=== PATIENT | female | born 1945 | race Caucasian/White ===

== ENCOUNTER 2016-06-29 10:35 | Outpatient (CLI) | payer MEDICARE, BC | END 2016-06-29 10:36 | disposition home or self-care (01) | DX: I48.91 Unspecified atrial fibrillation (principal) ==

== ENCOUNTER 2016-07-12 10:50 | Outpatient (CLI) | payer MEDICARE, BC | END 2016-07-12 10:51 | disposition home or self-care (01) | DX: I48.91 Unspecified atrial fibrillation (principal) ==

== ENCOUNTER 2016-07-22 10:47 | Outpatient (CLI) | payer MEDICARE, BC | END 2016-07-22 10:48 | disposition home or self-care (01) | DX: I48.91 Unspecified atrial fibrillation (principal) ==

== ENCOUNTER 2016-08-02 10:54 | Outpatient (CLI) | payer MEDICARE, BC | END 2016-08-02 10:55 | disposition home or self-care (01) | DX: I48.91 Unspecified atrial fibrillation (principal) ==

== ENCOUNTER 2016-08-30 11:57 | Outpatient (CLI) | payer MEDICARE, BC | END 2016-08-30 11:58 | disposition home or self-care (01) | DX: I48.91 Unspecified atrial fibrillation (principal) ==

== ENCOUNTER 2016-09-13 11:40 | Outpatient (CLI) | payer MEDICARE, BC | END 2016-09-13 11:41 | disposition home or self-care (01) | DX: I48.91 Unspecified atrial fibrillation (principal) ==

== ENCOUNTER 2016-09-27 11:47 | Outpatient (CLI) | payer MEDICARE, BC | END 2016-09-27 11:48 | disposition home or self-care (01) | DX: I48.91 Unspecified atrial fibrillation (principal) ==

== ENCOUNTER 2016-10-01 12:06 | Outpatient (CLI) | payer MEDICARE, BC | END 2016-10-01 12:07 | disposition home or self-care (01) | DX: I48.91 Unspecified atrial fibrillation (principal) ==

== ENCOUNTER 2016-10-18 13:52 | Outpatient (CLI) | payer MEDICARE, BC | END 2016-10-18 13:53 | disposition home or self-care (01) | DX: I48.91 Unspecified atrial fibrillation (principal) ==

== ENCOUNTER 2016-11-08 10:10 | Outpatient (CLI) | payer MEDICARE, BC ==
[2016-11-08 10:41] LABS: INR 4.3 (0.8-1.2); PT - PROTHROMBIN TIME 48.7 secs (9.9-12.6)
== END 2016-11-08 10:11 | disposition home or self-care (01) ==
LOC: LAB 10:10
PROVIDERS: ATTEND Internal Medicine
DX: I48.91 Unspecified atrial fibrillation (principal)
CPT/HCPCS: 36415; 85610

== ENCOUNTER 2016-11-12 11:07 | Outpatient (CLI) | payer MEDICARE, BC | END 2016-11-12 11:08 | disposition home or self-care (01) | LOC: LAB 11:07 | PROVIDERS: ATTEND Internal Medicine | DX: I48.91 Unspecified atrial fibrillation (principal) | CPT/HCPCS: 36415; 85610 ==

== ENCOUNTER 2016-11-18 11:18 | Outpatient (CLI) | payer MEDICARE, BC | END 2016-11-18 11:19 | disposition home or self-care (01) | DX: I48.91 Unspecified atrial fibrillation (principal) ==

== ENCOUNTER 2016-12-03 11:13 | Outpatient (CLI) | payer MEDICARE, BC | END 2016-12-03 11:14 | disposition home or self-care (01) | LOC: LAB 11:13 | PROVIDERS: ATTEND Internal Medicine | DX: I48.91 Unspecified atrial fibrillation (principal) | CPT/HCPCS: 85610 ==

== ENCOUNTER 2016-12-17 11:03 | Outpatient (CLI) | payer MEDICARE, BC | END 2016-12-17 11:04 | disposition home or self-care (01) | LOC: LAB 11:03 | PROVIDERS: ATTEND Internal Medicine | DX: I48.91 Unspecified atrial fibrillation (principal) | CPT/HCPCS: 85610 ==

== ENCOUNTER 2017-01-07 10:34 | Outpatient (CLI) | payer MEDICARE, BC ==
[2017-01-07 11:05] LABS: HCT - HEMATOCRIT 37.6 % (37.0-47.0); HGB - HEMOGLOBIN 12.5 g/dL (12.0-16.0); MEAN CORPUSCULAR HEMOGLOBIN 30.8 pg (27.0-31.0); MEAN CORPUSCULAR HGB CONC 33.2 g/dL (32.0-36.0); MEAN PLATELET VOLUME 7.5 fL (7.9-10.8); RED BLOOD COUNT 4.05 10^6/uL (4.20-5.40); RED CELL DISTRIBUTION WIDTH 17.3 % (12.0-15.0); WHITE BLOOD COUNT 6.1 x10^3/uL (4.8-10.8)
== END 2017-01-07 10:35 | disposition home or self-care (01) ==
LOC: LAB 10:34
PROVIDERS: ATTEND Internal Medicine
DX: I48.91 Unspecified atrial fibrillation (principal)
CPT/HCPCS: 36415; 85610

== ENCOUNTER 2017-01-26 13:10 | Outpatient (CLI) | payer MEDICARE, BC ==
[2017-01-26 19:23] LABS: BASOPHILS # (AUTO) 0.1 10^3/uL (0.0-0.1); EOSINOPHILS # (AUTO) 0.4 10^3/uL (0.0-0.7); EOSINOPHILS % (AUTO) 5.9 %; HCT - HEMATOCRIT 38.8 % (37.0-47.0); LYMPHOCYTES # (AUTO) 1.4 10^3/uL (1.5-3.5); LYMPHOCYTES % (AUTO) 18.6 %; MEAN CORPUSCULAR HEMOGLOBIN 31.3 pg (27.0-31.0); MEAN CORPUSCULAR HGB CONC 33.5 g/dL (32.0-36.0); MEAN CORPUSCULAR VOLUME 93.5 fL (81.0-99.0); MEAN PLATELET VOLUME 7.5 fL (7.9-10.8); MONOCYTES # (AUTO) 0.6 10^3/uL (0.0-1.0); MONOCYTES % (AUTO) 8.7 %; NEUTROPHILS # (AUTO) 4.8 10^3/uL (1.5-6.6); NEUTROPHILS % (AUTO) 65.8 %; RED BLOOD COUNT 4.15 10^6/uL (4.20-5.40); RED CELL DISTRIBUTION WIDTH 17.1 % (12.0-15.0); UNCORRECTED WHITE BLOOD COUNT 7.3 x10^3/uL; WHITE BLOOD COUNT 7.3 x10^3/uL (4.8-10.8)
[2017-01-26 19:34] LABS: HEMOGLOBIN A1C 0.56 g/dL
[2017-01-26 19:43] LABS: ALBUMIN/GLOBULIN RATIO 0.8 (1.0-2.2); BUN - BLOOD UREA NITROGEN 29 mg/dL (6-20); CALCIUM 9.7 mg/dL (8.5-10.3); CARBON DIOXIDE - CO2 25 mmol/L (21-32); CHLORIDE 101 mmol/L (101-111); CHOL/HDL RATIO 3.4 (<4.4); CHOLESTEROL 122 mg/dL; CREATININE 1.2 mg/dL (0.4-1.0); GFR - MDRD 45 (>89); GLUCOSE 148 mg/dL (70-100); HDL CHOLESTEROL 36 mg/dL; LDL/HDL RATIO 2.1 (<4.4); POTASSIUM 3.4 mmol/L (3.5-5.0); SODIUM 138 mmol/L (135-145); TOTAL PROTEIN 7.9 g/dL (6.7-8.2); TRIGLYCERIDES 62 mg/dL; VLDL CHOLESTEROL 12 mg/dL
== END 2017-01-26 13:11 ==
LOC: LAB.WCP 13:10
PROVIDERS: ATTEND Family Medicine
DX: E11.9 Type 2 diabetes mellitus without complications (principal)
CPT/HCPCS: 36415; 80053; 80061; 82043; 83036; 85025

== ENCOUNTER 2017-02-04 11:54 | Outpatient (CLI) | payer MEDICARE, BC | END 2017-02-04 11:55 | disposition home or self-care (01) | LOC: LAB 11:54 | PROVIDERS: ATTEND Internal Medicine | DX: I48.91 Unspecified atrial fibrillation (principal) | CPT/HCPCS: 85610 ==

== ENCOUNTER 2017-02-08 17:40 | Outpatient (CLI) | payer MEDICARE, BC ==
--- NOTE | 2017-02-09 09:18 | XRAY Report ---
TWO VIEW ABDOMEN: 02/08/2017 CLINICAL INDICATION: Constipation. FINDINGS: Supine and upright views of the abdomen demonstrate a normal bowel gas pattern. A gastric band is noted in place. No free intraperitoneal gas is present. There is a 10 mm radiodensity overlyi ng the left renal shadow, suspicious for nephrolithiasis. IMPRESSION: NO EVIDENCE OF BOWEL OBSTRUCTION OR PERFORATION. GASTRIC BAND. LIKELY LEFT NEPHROLITHIAS IS. JOB #: [id number] EXT JOB #:[id number]
== END 2017-02-08 17:41 | disposition home or self-care (01) ==
LOC: DI 17:40
PROVIDERS: ATTEND Family Medicine
DX: K59.00 Constipation, unspecified (principal)
CPT/HCPCS: 74020

== ENCOUNTER 2017-02-18 11:28 | Outpatient (CLI) | payer MEDICARE, BC | END 2017-02-18 11:29 | disposition home or self-care (01) | LOC: LAB 11:28 | PROVIDERS: ATTEND Internal Medicine | DX: I48.91 Unspecified atrial fibrillation (principal) | CPT/HCPCS: 85610 ==

== ENCOUNTER 2017-03-08 01:31 | Outpatient (CLI) | payer MEDICARE, BC | END 2017-03-08 01:32 | disposition critical access hospital (66) | LOC: EMS 01:31 | PROVIDERS: ATTEND Surgery | DX: M54.9 Dorsalgia, unspecified (principal); R25.2 Cramp and spasm | CPT/HCPCS: A0425; A0427 ==

== ENCOUNTER 2017-03-08 01:46 | Emergency (ER) | payer MEDICARE, BC ==
[2017-03-08] MEDS ORDERED: SODIUM CHLORIDE 0.9% 1,000 ML IV ONE (01:57)
[2017-03-08] MEDS ORDERED: DEXAMETHASONE 10 MG/ML VIAL IVP STA (02:14)
[2017-03-08] MEDS ORDERED: DEXAMETHASONE 10 MG/ML VIAL ONE (02:23)
[2017-03-08 02:37] LABS: BASOPHILS # (AUTO) 0.1 10^3/uL (0.0-0.1); BASOPHILS % (AUTO) 1.1 %; EOSINOPHILS # (AUTO) 0.3 10^3/uL (0.0-0.7); EOSINOPHILS % (AUTO) 5.2 %; HCT - HEMATOCRIT 37.3 % (37.0-47.0); HGB - HEMOGLOBIN 12.4 g/dL (12.0-16.0); LYMPHOCYTES # (AUTO) 1.2 10^3/uL (1.5-3.5); LYMPHOCYTES % (AUTO) 17.5 %; MEAN CORPUSCULAR HEMOGLOBIN 30.3 pg (27.0-31.0); MEAN CORPUSCULAR HGB CONC 33.1 g/dL (32.0-36.0); MEAN CORPUSCULAR VOLUME 91.4 fL (81.0-99.0); MONOCYTES # (AUTO) 0.7 10^3/uL (0.0-1.0); MONOCYTES % (AUTO) 11.2 %; NEUTROPHILS # (AUTO) 4.3 10^3/uL (1.5-6.6); NUCLEATED RED BLOOD CELLS AUTO 0.1 /100WBC; RED BLOOD COUNT 4.08 10^6/uL (4.20-5.40); RED CELL DISTRIBUTION WIDTH 16.8 % (12.0-15.0); UNCORRECTED WHITE BLOOD COUNT 6.7 x10^3/uL; WHITE BLOOD COUNT 6.7 x10^3/uL (4.8-10.8)
[2017-03-08 02:38] LABS: INR 2.5 (0.8-1.2)
[2017-03-08 02:45] LABS: ALBUMIN/GLOBULIN RATIO 0.7 (1.0-2.2); BILIRUBIN,TOTAL 4.9 mg/dL (0.2-1.0); CREATININE 1.2 mg/dL (0.4-1.0); POTASSIUM 3.3 mmol/L (3.5-5.0); TOTAL PROTEIN 8.2 g/dL (6.7-8.2)
[2017-03-08] MEDS ORDERED: POTASSIUM BICARB 25 MEQ TABLET PO STA (02:46)
[2017-03-08] MEDS ORDERED: POTASSIUM BICARB 25 MEQ TABLET PO ONE (03:01)
--- NOTE | 2017-03-08 03:22 | ED Physician Documentation ---
PD HPI BACK PAIN - Stated complaint Stated Complaint: BACK PX - Chief complaint Chief Complaint: Back Pain - History obtained from History obtained from: Patient, Family, EMS - History of Present Illness Timing - onset: How many days ago (3) Timing - duration: Days (3) Timing - details: Gradual onset, Still present Location: Lower Quality: Pain, Spasm, Sharp Associated symptoms: No: Fever, Weakness, Numbness, Incontinent of urine, Unable to urinate, Hematuria, Incontinent of stool Improves with: Rest Worsened by: Movement, Palpation Contributing factors: Other (The patient is on lasix and has pulmonary hypertension) Similar symptoms before: Diagnosis (lumbar spasm.) Recently seen: Clinic (The patient has increased her dose of lasix.) - Additional information Additional information: 71-year-old female with a history of pulmonary hypertension atrial fibrillation has chronic peripheral edema and has recently increased her dose of Lasix and has been diuresing. Over the past 3 days she has developed acute low back spasm and this evening she was unable to tolerate it any longer. She was able unable to get up to make it to the bathroom. She called 911 and she has had quite a relief of her pain with use of 50 mcg of fentanyl given in route to the hospital. Review of Systems Constitutional: denies: Fever Ears: denies: Ear pain Nose: denies: Congestion Throat: denies: Sore throat Cardiac: denies: Chest pain / pressure, Palpitations Respiratory: reports: Dyspnea. denies: Cough GI: denies: Abdominal Pain, Nausea, Vomiting : denies: Dysuria, Frequency Skin: denies: Rash Musculoskeletal: reports: Back pain, Extremity swelling. denies: Neck pain Neurologic: denies: Generalized weakness, Focal weakness, Numbness PD PAST MEDICAL HISTORY - Past Medical History Cardiovascular: Hypertension, High cholesterol, Atrial fibrillation, Murmur, Other Respiratory: Other Endocrine/Autoimmune: Type 2 diabetes - Past Surgical History Past Surgical History: Yes HEENT: Cataracts - Present Medications Home Medications: Ambulatory Orders Medication Instructions Recorded Confirmed Albuterol Sulfate [Albuterol 8.5 gm 03/13/15 03/13/15 Sulfate Hfa] Cephalexin Suspension [Keflex] 500 mg PO QID #300 ml 03/13/15 Furosemide [Lasix] 80 mg 03/13/15 03/13/15 Insulin Glargine,Hum.rec.anlog 40 units 03/13/15 03/13/15 [Lantus] Irbesartan [Avapro] 75 mg 03/13/15 03/13/15 Metoprolol Tartrate [Lopressor] 25 mg 03/13/15 03/13/15 Simvastatin 20 mg 03/13/15 03/13/15 Warfarin Sodium [Coumadin] 2 mg 03/13/15 03/13/15 Nitrofurantoin [Macrobid] 100 mg PO BID #10 capsule 03/08/17 traMADol [Ultram] 50 mg PO Q6H PRN #20 tablet 03/08/17 - Allergies Allergies/Adverse Reactions: Allergies Allergy/AdvReac Type Severity Reaction Status Date / Time amlodipine besylate * AdvReac Unknown Verified 03/08/17 01:57 [From [facility]] codeine AdvReac Hallucinati Verified 03/08/17 01:57 ons - Social History Does the pt smoke?: No Smoking Status: Never smoker Does the pt drink ETOH?: No Does the pt have substance abuse?: No - Immunizations Immunizations are current?: Yes PD ED PE NORMAL - Vitals Vital signs reviewed: Yes (tachy ) - General General: No acute distress, Well developed/nourished - HEENT HEENT: Atraumatic, PERRL - Neck Neck: Supple, no meningeal sign - Cardiac Cardiac: RRR, Other (harsh 2/6 holosystolic murmer at LSB) - Respiratory Respiratory: No respiratory distress, Clear bilaterally - Abdomen Abdomen: Soft, Non tender, Other (There are redundant folds in the abdomen ) - Back Back: Other (There is point tenderness to the lower lumbar paraspinous muscles ) - Derm Derm: Normal color, Warm and dry, No rash - Extremities Extremities: No deformity, Other (There is marked edema to the LE bilaterally. The left ankle is in a compression dressing with a wound vac in place. The edema is past the thighs. There is woody induration to the anterior calves. with post inflamitory hyperpigmentation. ) - Neuro Neuro: No motor deficit, No sensory deficit, Normal speech - Psych Psych: Normal mood, Normal affect Results - Vitals Vitals: Vital Signs - 24 hr 03/08/17 01:55 Temperature 36.2 C L Heart Rate 102 H Respiratory 16 Rate Blood Pressure 120/61 O2 Saturation 96 Oxygen O2 Source Room air - Labs Labs: Laboratory Tests 03/08/17 03/08/17 03/08/17 02:28 02:28 02:28 WBC 6.7 RBC 4.08 L Hgb 12.4 Hct 37.3 MCV 91.4 MCH 30.3 MCHC 33.1 RDW 16.8 H Plt Count 174 MPV 7.0 L Neut # 4.3 Lymph # 1.2 L [place] # 0.7 Eos # 0.3 Baso # 0.1 Absolute Nucleated RBC 0.01 Nucleated RBCs 0.1 PT 29.0 H INR 2.5 H Sodium 136 Potassium 3.3 L Chloride 100 L Carbon Dioxide 25 Anion Gap 11.0 BUN 33 H Creatinine 1.2 H Estimated GFR (MDRD) 45 L Glucose 155 H Calcium 9.0 Total Bilirubin 4.9 H AST 30 ALT 13 Alkaline Phosphatase 111 Total Protein 8.2 Albumin 3.5 Globulin 4.7 H Albumin/Globulin Ratio 0.7 L Lipase 21 L Urine Color Urine Clarity Urine pH Ur Specific [place] Urine Protein Urine Glucose (UA) Urine Ketones Urine Occult Blood Urine Nitrite Urine Bilirubin Urine Urobilinogen Ur Leukocyte Esterase Urine RBC Urine WBC Ur Squamous Epith Cells Urine Bacteria Urine Mucus Ur Microscopic Review Urine Culture Comments 03/08/17 04:23 WBC RBC Hgb Hct MCV MCH MCHC RDW Plt Count MPV Neut # Lymph # [place] # Eos # Baso # Absolute Nucleated RBC Nucleated RBCs PT INR Sodium Potassium Chloride Carbon Dioxide Anion Gap BUN Creatinine Estimated GFR (MDRD) Glucose Calcium Total Bilirubin AST ALT Alkaline Phosphatase Total Protein Albumin Globulin Albumin/Globulin Ratio Lipase Urine Color DK. ORANGE Urine Clarity SL. CLOUDY Urine pH 5.5 Ur Specific [place] 1.025 Urine Protein 30 H Urine Glucose (UA) NEGATIVE Urine Ketones NEGATIVE Urine Occult Blood LARGE H Urine Nitrite NEGATIVE Urine Bilirubin NEGATIVE Urine Urobilinogen 1 (NORMAL) Ur Leukocyte Esterase TRACE H Urine RBC TNTC H Urine WBC 6-10 H Ur Squamous Epith Cells RARE Squamous Urine Bacteria Few Urine Mucus Few Strands Ur Microscopic Review INDICATED Urine Culture Comments INDICATED Procedures - IVC sono (time) 0210 Bedside IVC sono: IVC measures (cm) (2.86), Other (pulmonary hypertension.) PD MEDICAL DECISION MAKING - ED course Complexity details: reviewed results, re-evaluated patient, considered differential, d/w patient, d/w family ED course: 71-year-old female with a history of atrial fibrillation and pulmonary hypertension who is on Coumadin has developed some acute low back spasm. She does appear dehydrated on evaluation of her blood work she does have a generous inferior vena cava consistent with the reported pulmonary hypertension. She has this fluid channel all the way down to her feet. Despite this she is given intravenous saline dexamethasone and tramadol with improvement in her pain.She is also found to have mildly low potassium and is given 25 mEq of potassium bicarbonate. Departure - Departure Disposition: 01 Home, Self Care Clinical Impression: Back spasm, Dehydration, Hypokalemia Urinary tract infection Qualifiers: Urinary tract infection type: acute cystitis Hematuria presence: with hematuria Qualified Code(s): N30.01 - Acute cystitis with hematuria Condition: Stable Instructions: ED Spasm Back No Trauma, ED Dehydration, ED Potassium Deficiency , ED UTI Cystitis Female Follow-Up: Wendy Shah DO [Primary Care Provider] - Prescriptions: Nitrofurantoin [Macrobid] 100 mg PO BID #10 capsule traMADol [Ultram] 50 mg PO Q6H PRN #20 tablet PRN Reason: Pain
[2017-03-08] MEDS ORDERED: traMADol 50 MG TABLET PO STA (03:32)
[2017-03-08] MEDS ORDERED: traMADol 50 MG TABLET PO ONE (03:43)
[2017-03-08 04:44] LABS: PH,URINE 5.5 PH (5.0-7.5)
[2017-03-08 04:48] LABS: BILIRUBIN,URINE NEGATIVE (NEGATIVE); UA w/ MICROSCOPIC CHARGE YES
[2017-03-08 04:52] LABS: UR CULTURE IF IND INDICATED
[2017-03-08] MEDS ORDERED: cefTRIAXone 1 GM in SODIUM CHLORIDE 0.9% MINIBAG 100 ML IV STA (05:11)
[2017-03-08] MEDS ORDERED: cefTRIAXone 1 GM VIAL ONE (05:24)
[2017-03-08 05:49] VITALS: BP 133/75
== END 2017-03-08 06:00 | disposition home or self-care (01) ==
LOC: EDUNIT# → ED 01:46 → SUPCPDRO 01:46 → ED 06:00
DX: M62.830 Muscle spasm of back (principal); E86.0 Dehydration; E87.6 Hypokalemia; N30.01 Acute cystitis with hematuria; I48.91 Unspecified atrial fibrillation; E11.9 Type 2 diabetes mellitus without complications; I27.2 Other secondary pulmonary hypertension; R60.0 Localized edema; Z79.01 Long term (current) use of anticoagulants; Z79.4 Long term (current) use of insulin
CPT/HCPCS: 36415; 80053; 81001; 83690; 85025; 85610; 87086; 96365; 96375; 99284; A9270; 81003

== ENCOUNTER 2017-03-11 11:31 | Outpatient (CLI) | payer MEDICARE, BC | END 2017-03-11 11:32 | disposition home or self-care (01) | LOC: LAB 11:31 | PROVIDERS: ATTEND Internal Medicine | DX: E63.8 Other specified nutritional deficiencies (principal); I48.91 Unspecified atrial fibrillation | CPT/HCPCS: 36415; 84134; 85610 ==

== ENCOUNTER 2017-04-10 09:45 | Outpatient (CLI) | payer MEDICARE, BC | END 2017-04-10 09:46 | disposition critical access hospital (66) | LOC: EMS 09:45 | PROVIDERS: ATTEND Surgery | DX: R53.1 Weakness (principal) | CPT/HCPCS: A0425; A0429 ==

== ENCOUNTER 2017-04-10 09:59 | Inpatient (IN) | payer MEDICARE, BC ==
--- NOTE | 2017-04-10 10:40 | ED Physician Documentation ---
PD HPI DYSPNEA - Stated complaint Stated Complaint: WEAKNESS - Chief complaint Chief Complaint: Neuro - History obtained from History obtained from: Patient, Family - History of Present Illness Timing - onset: How many months ago (2) Timing - onset during: Light activity Timing - details: Gradual onset Inciting event(s): No: Out of meds, URI Improved by: Rest Worsened by: Exertion, Laying flat Associated symptoms: Bilateral edema. No: Fever, Cough, Wheezing, Chest pain / discomfort, Palpitations Similar symptoms before: Has not had sx before Recently seen: Not recently seen Review of Systems Constitutional: reports: Myalgias, Fatigue. denies: Fever, Chills Nose: denies: Rhinorrhea / runny nose, Congestion Throat: denies: Sore throat Cardiac: reports: Pedal edema. denies: Chest pain / pressure, Palpitations, Calf pain (but pain left lower leg at sores, and has been to [facility] for it.) Respiratory: reports: Dyspnea. denies: Cough, Wheezing GI: denies: Abdominal Pain, Nausea, Vomiting, Diarrhea : denies: Dysuria, Frequency Skin: reports: Lesions (sore left foot/ankle with some clear drainage.) Musculoskeletal: denies: Neck pain, Back pain Neurologic: reports: Generalized weakness. denies: Focal weakness, Numbness, Altered mental status, Headache, Head injury PD PAST MEDICAL HISTORY - Past Medical History Past Medical History: Yes Cardiovascular: Hypertension, High cholesterol, Atrial fibrillation, Murmur, Other Respiratory: Other Endocrine/Autoimmune: Type 2 diabetes Musculoskeletal: Other Other Past Medical History: osteomylitis, lymphedema - Past Surgical History Past Surgical History: Yes HEENT: Cataracts - Present Medications Home Medications: Ambulatory Orders Medication Instructions Recorded Confirmed Albuterol Sulfate [Albuterol 8.5 gm PO PRN PRN 03/13/15 04/10/17 Sulfate Hfa] Furosemide [Lasix] 80 mg PO DAILY 03/13/15 04/10/17 Insulin Glargine,Hum.rec.anlog 40 units SQ DAILY 03/13/15 04/10/17 [Lantus] Warfarin Sodium [Coumadin] 2 mg PO DAILY 03/13/15 04/10/17 traMADol [Ultram] 50 mg PO Q6H PRN #20 tablet 03/08/17 04/10/17 Potassium Chloride 15 ml PO DAILY 04/10/17 04/10/17 - Allergies Allergies/Adverse Reactions: Allergies Allergy/AdvReac Type Severity Reaction Status Date / Time amlodipine besylate * AdvReac Unknown Verified 03/08/17 01:57 [From [facility]] codeine AdvReac Hallucinati Verified 03/08/17 01:57 ons - Social History Does the pt smoke?: No Smoking Status: Never smoker Does the pt drink ETOH?: No Does the pt have substance abuse?: No - Immunizations Immunizations are current?: Yes PD ED PE NORMAL - Vitals Vital signs reviewed: Yes - General General: Alert and oriented X 3, Well developed/nourished - HEENT HEENT: Atraumatic, Ears normal, Pharynx benign - Neck Neck: Supple, no meningeal sign, No adenopathy, No bruit, Other (JVD at 45 degrees) - Cardiac Cardiac: RRR, No murmur, No rub, Other (2/6 murmur left chest) - Respiratory Respiratory: Other (faint crackles at bases, otherwise clear. ) - Abdomen Abdomen: Soft, Non tender - Female Female : Deferred - Rectal Rectal: Deferred - Back Back: No CVA TTP - Derm Derm: Normal color, Warm and dry - Extremities Extremities: No tenderness to palpate, Other (marked 3+ edema in both legs. ) - Neuro Neuro: Alert and oriented X 3, foot setter 2-12 intact, No motor deficit, Normal speech - Psych Psych: Normal mood Results - Vitals Vitals: Vital Signs - 24 hr 04/10/17 04/10/17 04/10/17 10:00 11:07 11:56 Temperature 36.2 C L 36.5 C Heart Rate 95 64 102 H Respiratory 20 18 16 Rate Blood Pressure 120/86 H 115/70 130/64 O2 Saturation 96 95 97 04/10/17 12:46 Temperature Heart Rate 99 Respiratory 16 Rate Blood Pressure 109/86 H O2 Saturation 97 Oxygen O2 Source Room air - Labs Labs: Laboratory Tests 04/10/17 04/10/17 04/10/17 11:19 11:19 11:19 WBC 7.3 RBC 4.17 L Hgb 12.6 Hct 37.7 MCV 90.3 MCH 30.1 MCHC 33.4 RDW 18.9 H Plt Count 203 MPV 7.3 L Neut # 5.0 Lymph # 1.1 L [place] # 1.0 Eos # 0.2 Baso # 0.0 Absolute Nucleated RBC 0.00 Nucleated RBC % 0.1 PT 35.2 H INR 3.1 H Sodium 130 L Potassium 3.9 Chloride 96 L Carbon Dioxide 21 Anion Gap 13.0 BUN 37 H Creatinine 1.4 H Estimated GFR (MDRD) 37 L Glucose 145 H Calcium 9.1 Magnesium 2.2 Total Bilirubin 7.4 H AST 38 ALT 14 Alkaline Phosphatase 98 Troponin I B-Natriuretic Peptide Total Protein 7.8 Albumin 3.2 Globulin 4.6 H Albumin/Globulin Ratio 0.7 L Lipase 16 L 04/10/17 04/10/17 11:19 11:19 WBC RBC Hgb Hct MCV MCH MCHC RDW Plt Count MPV Neut # Lymph # [place] # Eos # Baso # Absolute Nucleated RBC Nucleated RBC % PT INR Sodium Potassium Chloride Carbon Dioxide Anion Gap BUN Creatinine Estimated GFR (MDRD) Glucose Calcium Magnesium Total Bilirubin AST ALT Alkaline Phosphatase Troponin I 0.04 B-Natriuretic Peptide 315 H Total Protein Albumin Globulin Albumin/Globulin Ratio Lipase - Rads (name of study) chest Radiology: Prelim report reviewed, EMP read contemporaneously (mild pulmonary edema) PD MEDICAL DECISION MAKING - ED course Complexity details: reviewed old records, reviewed results, considered differential (marked edema in both legs, with sores on left. Some redness of skin but appears more chronic stasis. Has fairly clear lung sounds, so not as apparent CHF. Consider flow impairment at level liver/abd, larry in lieu of elevated liver enzymes with normal enough abd U/S couple weeks ago. General weakness from edema and weight. ), d/w patient Departure - Departure Disposition: ED Place in Observation Clinical Impression: Generalized edema, Elevated bilirubin, Generalized weakness, Sore on leg Dyspnea Qualifiers: Dyspnea type: shortness of breath Qualified Code(s): R06.02 - Shortness of breath Obesity Qualifiers: Obesity type: unspecified obesity type Obesity classification: unspecified obesity classification Serious obesity comorbidity presence: without serious comorbidity Qualified Code(s): E66.9 - Obesity, unspecified Condition: Stable Record reviewed to determine appropriate education?: Yes
[2017-04-10] MEDS ORDERED: FUROSEMIDE 40 MG/4 ML VIAL IVP STA ×2 (11:10→11:11)
[2017-04-10] MEDS ORDERED: FUROSEMIDE 40 MG/4 ML VIAL ONE ×2 (11:23→11:50)
[2017-04-10 11:27] LABS: BASOPHILS % (AUTO) 0.4 %; EOSINOPHILS # (AUTO) 0.2 10^3/uL (0.0-0.7); EOSINOPHILS % (AUTO) 2.5 %; HCT - HEMATOCRIT 37.7 % (37.0-47.0); HGB - HEMOGLOBIN 12.6 g/dL (12.0-16.0); LYMPHOCYTES # (AUTO) 1.1 10^3/uL (1.5-3.5); LYMPHOCYTES % (AUTO) 14.7 %; MEAN CORPUSCULAR HEMOGLOBIN 30.1 pg (27.0-31.0); MEAN CORPUSCULAR HGB CONC 33.4 g/dL (32.0-36.0); MEAN CORPUSCULAR VOLUME 90.3 fL (81.0-99.0); MEAN PLATELET VOLUME 7.3 fL (7.9-10.8); MONOCYTES % (AUTO) 13.2 %; NEUTROPHILS % (AUTO) 69.2 %; NUCLEATED RED BLOOD CELLS AUTO 0.1 /100WBC; RED BLOOD COUNT 4.17 10^6/uL (4.20-5.40); RED CELL DISTRIBUTION WIDTH 18.9 % (12.0-15.0); UNCORRECTED WHITE BLOOD COUNT 7.3 x10^3/uL; WHITE BLOOD COUNT 7.3 x10^3/uL (4.8-10.8)
[2017-04-10 11:33] LABS: INR 3.1 (0.8-1.2); PT - PROTHROMBIN TIME 35.2 secs (9.9-12.6)
[2017-04-10 11:42] LABS: ALBUMIN/GLOBULIN RATIO 0.7 (1.0-2.2); BILIRUBIN,TOTAL 7.4 mg/dL (0.2-1.0); CALCIUM 9.1 mg/dL (8.5-10.3); CREATININE 1.4 mg/dL (0.4-1.0); MAGNESIUM 2.2 mg/dL (1.7-2.8); POTASSIUM 3.9 mmol/L (3.5-5.0); TOTAL PROTEIN 7.8 g/dL (6.7-8.2)
--- NOTE | 2017-04-10 12:02 | XRAY Preliminary Report ---
Exam: XR CHEST 1 VIEW IMPRESSION: 1. Mild pulmonary edema. [facility] SITE ID: [id number]
--- NOTE | 2017-04-10 12:05 | XRAY Report ---
EXAM: CHEST RADIOGRAPHY EXAM DATE: 04/10/2017 11:42 AM. CLINICAL HISTORY: Dyspnea and weight gain. COMPARISON: None. TECHNIQUE: 1 view. FINDINGS: Lungs/Pleura: Mild bilateral pulmonary edema. Mild pulmonary vascular redistribution. Mediastinum: Heart size upper normal limits. Other: None. IMPRESSION: 1. Mild pulmonary edema. [facility] Referring Provider Line: [phone] SITE ID: [id number]
[2017-04-10] MEDS ORDERED: metOLazone 2.5 MG TABLET PO STA (12:35)
[2017-04-10] MEDS ORDERED: BUMETANIDE 1 MG/4 ML VIAL IVP STA (12:35)
[2017-04-10] MEDS ORDERED: ONDANSETRON 4 MG/2 ML VIAL IVP PRN (12:44)
[2017-04-10] MEDS ORDERED: SODIUM CHLORIDE FLUSH 0.9% 10 ML SYRINGE IVP PRN (12:44)
[2017-04-10] MEDS ORDERED: ONDANSETRON ODT 4 MG TABLET TL PRN (12:44)
[2017-04-10] MEDS ORDERED: ACETAMINOPHEN 325 MG TABLET PO PRN (12:44)
[2017-04-10] MEDS ORDERED: ENOXAPARIN 40 MG/0.4 ML SYRINGE SUBQ SCH (13:00)
--- NOTE | 2017-04-10 13:57 | CT Preliminary Report ---
Exam: CT ABDOMEN/PELVIS W/O IMPRESSION: 1. Mild intra-abdominal ascites. 2. Gastric banding procedure. 3. Potential pulmonary infection and/or pulmonary nodules which remain indeterminate. Consider dedica helena chest CT for further evaluation. 4. Cholelithiasis. 5. Bilateral nonobstructive nephrolithiasis. RADI SITE ID: [id number]
--- NOTE | 2017-04-10 13:59 | CT Report ---
EXAM: CT ABDOMEN AND PELVIS (CT KUB) EXAM DATE: 04/10/2017 01:18 PM. CLINICAL HISTORY: Elevated liver enzymes. COMPARISONS: None. TECHNIQUE: Routine axial helical CT imaging was performed through the abdomen and pelvis without IV c ontrast. Reconstructions: Coronal and sagittal. In accordance with CT protocol optimization, one or more of the following dose reduction techniques w ere utilized for this exam: automated exposure control, adjustment of mA and/or KV based on patient s ize, or use of iterative reconstructive technique. FINDINGS: Evaluation is limited by patient body habitus and the lack of any contrast. Lung Bases: Patchy airspace opacification is in the right middle lobe. There is atelectasis in the ri ght lower lobe. A questionable 3 mm pulmonary nodule is in the left lower lobe on series 3, image 1. There are 2 pulmonary nodules in the left lower lobe on series 3, image 9 with the largest measuring 7 mm. A trace right pleural effusion is seen. Right Kidney/Ureter: 3 nonobstructive stones are in the right kidney. The largest measures 6 mm. No h ydronephrosis. Multiple nonobstructive stones are in the left kidney. The largest measures 1.1 cm. No hydronephrosis. Left Kidney/Ureter: No stones, hydronephrosis, or hydroureter. No perinephric fat stranding. Other Solid Organs: The pancreas is atrophied. The liver is somewhat small in size. The spleen is unr emarkable. Gallbladder/Bile Ducts: Multiple gallstones are present. Peritoneal Cavity: The patient has had a gastric banding procedure. Mild ascites is present. Pelvic Organs: No bladder stones or wall thickening. Noncontrast images of the visualized pelvic orga ns are unremarkable. Vasculature: The infrahepatic inferior vena cava is enlarged. Other: Mitral annulus calcifications are present. Diffuse anasarca is present. There is DISH of the t horacic spine. IMPRESSION: 1. Mild intra-abdominal ascites. 2. Gastric banding procedure. 3. Potential pulmonary infection and/or pulmonary nodules which remain indeterminate. Consider dedica helena chest CT for further evaluation. 4. Cholelithiasis. 5. Bilateral nonobstructive nephrolithiasis. [facility] Referring Provider Line: [phone] SITE ID: [id number]
[2017-04-10] MEDS: SODIUM CHLORIDE FLUSH 0.9% 10 ML SYRINGE IVP SCH ×2 (15:45→21:30)
[2017-04-10] MEDS: SPIRONOLACTONE 25 MG TABLET PO SCH (16:57)
[2017-04-10 17:45] LABS: MAGNESIUM 2.4 mg/dL (1.7-2.8); PHOSPHORUS 3.4 mg/dL (2.5-4.6)
[2017-04-10 19:18] LABS: HEMOGLOBIN A1C 0.54 g/dL
[2017-04-10] MEDS: INSULIN ASPART 300 UNIT/3 ML PEN SUBQ SCH (21:29)
[2017-04-10] MEDS: INSULIN GLARGINE 300 UNIT/3 ML PEN SUBQ SCH (21:29)
[2017-04-10] MEDS: traZODone 50 MG TABLET PO PRN (21:30)
[2017-04-10] MEDS: HYDROcod/ACETAM 5/325 MG TABLET PO PRN (23:47)
--- NOTE | 2017-04-11 01:21 | HISTORY & PHYSICAL EXAMINATION ---
DATE OF ADMISSION: 04/10/2017 CHIEF COMPLAINT: Worsening bilateral lower extremity edema and weakness and shortness of breath. HISTORY OF PRESENT ILLNESS: The patient is a morbidly obese 71-year-old female with a medical history that includes laparoscopic banding for weight loss, hypertension, hypercholesterolemia, atrial fibrillation, heart murmur, type 2 diabetes, osteomyelitis and lymphedema. The patient states she was in her usual state of health when approximately a couple days ago she started having gradual onset of shortness of breath and worsening bilateral lower extremity edema. The patient states the original symptoms started many months ago and had been gradually worsening over the last several weeks. She states that she gets short of breath and weak with just light activity. She states it has been improved with resting and she has a difficult time lying flat, states that shortness of breath worsens. The bilateral lower extremity edema has been worsening for several weeks. She has never had these types of symptoms before. She was recently seen by her doctor Wendy Shah for similar symptoms and was worked up in the office and was noted to have an elevated bilirubin. The patient has been on Coumadin for approximately 2 years for her onset of atrial fibrillation. The patient states that she has been gaining weight over the last 8 months for a total of 70 pounds and in the last 2-3 months for weight gain has been the worst. At her highest weight she weighed 500 pounds. She is now 387 after lap band procedure approximately 10 years ago. The patient is a diabetic and on insulin. She states that she takes Lantus anywhere between 10 and 35 units depending on her blood sugars. She states that her blood sugars have been within normal limits. She admits to having atrial fibrillation. Her last INR that was checked was between 2 and 3. She is not taking blood pressure medications nor is she taking any medication for thyroid. She states she had an echocardiogram approximately 1 year ago for worsening atrial fibrillation. The patient also had a recent amputation on her left foot with a small middle toe for a osteomyelitis. 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 The patient was seen approximately a month ago in her primary care provider's office for back spasms. She was given tramadol by her primary care provider. While in the ER, she had a CT of the abdomen and pelvis, which did show multiple pulmonary nodules which remains indeterminate. diffuse anasarca, multiple nonobstructing stones in the left kidney, atrophy of the pancreas, small liver, unremarkable spleen, multiple gallstones and mild ascites present in the abdomen. The intrahepatic inferior vena cava was also noted to be enlarged. Recommendation was for a repeat CT of the chest to revaluate pulmonary nodules. She did have a trace of right pleural effusion and on chest x -ray was noted to have moderate pulmonary edema. The patient was admitted for further evaluation for her shortness of breath and worsening bilateral lower leg edema. ALLERGIES: AMLODIPINE AND CODEINE. HOME MEDICATION: 1. Coumadin 2 mg p.o. on Tuesday, Tuesday, , Tuesday and Coumadin 3 mg on Tuesday, Tuesday, and Tuesday. 2. Trazodone 50 mg p.o. at night as needed. 3. Lasix between 80 and 160 mg p.o. daily as needed for edema. 4. Potassium chloride 20 mEq p.o. daily. 5. Insulin Humalog Lantus 15-25 units subcutaneous b.i.d. PAST MEDICAL HISTORY: Includes morbid obesity, osteomyelitis, hypertension, insulin-dependent diabetes mellitus, cataract surgery, lap band surgery, lymphedema, hyperlipidemia, atrial fibrillation, heart murmur, hypertension. PAST SURGICAL HISTORY: Cataract lap, band surgery and amputation of the left toe on left foot. FAMILY HISTORY: The patient states that her mother of a stroke at 76 and her father of a self-inflicted gunshot wound suicide at the same age 76 after losing his the same day. The patient states that her mother had atrial fibrillation. PAST SOCIAL HISTORY: The patient denies smoking or alcohol usage. She denies illicit drug usage. She is . REVIEW OF SYSTEMS: Ten systems have been reviewed and negative, with exception as discussed in the HPI prior. She is negative for runny nose, congestion or sore throat. She is positive for fatigue, weakness. Denies fever, chills. Denies abdominal pain, nausea, vomiting, diarrhea. She does report lesions on her left foot and ankle with clear drainage, generalized weakness but denies headache, head injury, neck pain and back pain, chest pain or pressure. She does admit to pedal edema and shortness of breath. Denies cough or wheezing. PHYSICAL EXAMINATION: CONSTITUTIONAL: The patient is alert, in no acute distress. EYES: Pupils are equal, round and react to light and accommodation. Conjunctivae and sclerae are nonicteric, not injected. ENT: Nares are patent. No nasal discharge. OROPHARYNX: No masses, exudates or lesions. Mucous membranes are moist. NECK: Supple. No thyromegaly. CARDIOVASCULAR: Murmur noted to 2/6 left chest murmur, no rubs. RESPIRATORY: Breath sounds were clear upper and lower lobes bilaterally with faint crackles at the bases. No retractions, nasal flaring, or increased work of breathing. ABDOMEN: Obese, soft, with noted ascites. Nontender. PSYCHIATRIC: Behavior was appropriate. Normal affect, pleasant mood. SKIN: Warm, dry, and intact with multiple ecchymosis to upper and lower extremities with bilateral lower worsening venous stasis and insufficiency. 3+ marked edema in both bilateral lower extremities. MUSCULOSKELETAL: No cyanosis. Pulses were palpable and noted edema. The patient was able to move upper and lower extremities with moderate difficulty to lower extremities. NEUROLOGICAL: She is alert, GCS 15. Cranial nerves 2-12 are intact. No motor deficits noted. GENITOURINARY: No CVA tenderness. No masses were palpated and the bladder was not distended. VITAL SIGNS: Temperature is 36.5, heart rate 64, respirations 18, blood pressure 115/70 with an oxygen saturation of 97% on room air. HEMATOLOGIC: She has no active bleeding. The patient is hemodynamically stable. LYMPHATICS: No cervical, axillary, or supraclavicular lymphadenopathy was noted. DIAGNOSTICS AND LABORATORY DATA: I personally reviewed laboratory diagnostic data, and medical records. The abnormals were as follows, PT 35.2. INR 3.1. Sodium is 130, chloride 96, BUN 37, creatinine 1.4, GFR 37, glucose 145, total bilirubin 7.4, globulin 4.6, lipase 16. WBC 7.3. BNP 315. First troponin was 0.04. DIAGNOSTICS: EKG showed atrial fibrillation. Chest x-ray shows mild pulmonary edema. CT of the abdomen and pelvis was reported earlier in HPI. ASSESSMENT AND PLAN: 1. Acute dyspnea with bilateral lower extremity edema and mild pulmonary edema on x-ray with apparent CHF unspecified. PLAN: will give the patient IV Lasix, start her on spironolactone. Echocardiogram has been ordered for in the morning. Will continue with supplemental oxygen, DuoNeb treatments as needed and Respiratory Therapy for supports. Will continue the patient on home dosage of Lasix 80 mg p.o. daily. Will continue on her albuterol inhaler as needed. Will also continue on potassium chloride 20 mg p.o. daily. 2. Acute on chronic elevated bilirubin with hyperbilirubinemia with probable liver/pancreatic mass. PLAN: Will request an MRCP in the morning to rule out probable mass to either the pancreas or liver. The patient is not experiencing any upper abdominal pain ; however, has had marked elevated bilirubin over the last several weeks. She is supposed to be seeing a GI specialist in [facility] with an appointment made from her PCP, Wendy Shah DO, however, has not been able to see GI at this time. We will reevaluate and follow her LFTs and bilirubin and the patient may have transfer for further evaluation and workup pending on the MRCP report. 3. Acute ascites in the abdominal area with elevated bilirubin and probable slow impairment at the liver. PLAN: Will continue to monitor her liver enzymes and bilirubin and give Lasix and spironolactone. Continue to monitor kidney function. The patient is very jaundiced. Will continue to monitor edema and monitor output. 4. Insulin-dependent diabetes mellitus with complications. PLAN: Continue the patient on Accu-Cheks a.c. and h.s. and sliding scale insulin. Will continue on Lantus. 5. Acute multiple pulmonary nodules in left lower lobe of lung. PLAN: Will get a CEA and CA-125 since the patient probably has carcinoma. Questionable whether this is metastasizing to other organs throughout the abdominal region. Again, MRCP to rule out inclusion of liver and pancreas. 6. Morbid obesity BMI >50 status post laparoscopic banding. PLAN: Will continue on a diabetic diet. Continue to monitor daily weights and encourage ambulation and low calorie diabetic diet. 7. Hyperlipidemia, mixed, chronic. PLAN: Will get a lipid profile. 8. Chronic atrial fibrillation on anticoagulation, therapeutic. PLAN: Will continue the patient on Coumadin home dosage and continue with PT and INR daily. Continue to monitor for active bleeding. 9. Deep venous thrombosis prophylaxis with foot pumps. 10. CODE STATUS: THE PATIENT IS a FULL CODE. 11. RISK ASSESSMENT/DISPOSITION: The patient is high risk for worsening comorbidities. She will require additional diagnostics and will be on IV medication with high risk for toxicity. Anticipate length of stay is 1 overnight with potential for more midnights depending on results from diagnostics and blood work. Time spent on the evaluation and assessment for admission was 50 minutes. JOB #: [id number] EXT JOB #:[id number] ALONZO
[2017-04-11 06:02] LABS: BASOPHILS # (AUTO) 0.1 10^3/uL (0.0-0.1); BASOPHILS % (AUTO) 1.1 %; EOSINOPHILS # (AUTO) 0.3 10^3/uL (0.0-0.7); EOSINOPHILS % (AUTO) 3.5 %; HCT - HEMATOCRIT 36.7 % (37.0-47.0); HGB - HEMOGLOBIN 12.3 g/dL (12.0-16.0); LYMPHOCYTES # (AUTO) 1.4 10^3/uL (1.5-3.5); LYMPHOCYTES % (AUTO) 19.1 %; MEAN CORPUSCULAR HEMOGLOBIN 30.6 pg (27.0-31.0); MEAN CORPUSCULAR HGB CONC 33.6 g/dL (32.0-36.0); MEAN CORPUSCULAR VOLUME 91.2 fL (81.0-99.0); MONOCYTES % (AUTO) 13.6 %; NEUTROPHILS # (AUTO) 4.5 10^3/uL (1.5-6.6); NEUTROPHILS % (AUTO) 62.7 %; RED BLOOD COUNT 4.02 10^6/uL (4.20-5.40); RED CELL DISTRIBUTION WIDTH 18.9 % (12.0-15.0); UNCORRECTED WHITE BLOOD COUNT 7.2 x10^3/uL; WHITE BLOOD COUNT 7.2 x10^3/uL (4.8-10.8)
[2017-04-11] MEDS: SODIUM CHLORIDE FLUSH 0.9% 10 ML SYRINGE IVP SCH ×3 (06:18→22:39)
[2017-04-11 06:19] LABS: ALBUMIN/GLOBULIN RATIO 0.7 (1.0-2.2); BILIRUBIN,TOTAL 7.6 mg/dL (0.2-1.0); CALCIUM 9.2 mg/dL (8.5-10.3); CREATININE 1.5 mg/dL (0.4-1.0); POTASSIUM 3.7 mmol/L (3.5-5.0); TOTAL PROTEIN 7.1 g/dL (6.7-8.2)
--- NOTE | 2017-04-11 07:06 | PROVIDER PROGRESS NOTE ---
Assessment/Plan - Problem List (1) Bilateral lower extremity edema Assessment/Plan: acute on chronic. elevation, diuretics and will continue to get patient up with PT as she is able. she cannot wear the ARUN hose so will wrap with tommy wrap and Kerlex. wound care has been ordered. edema likely due to liver failure and metastatic disease unspecified. (2) Elevated bilirubin Assessment/Plan: acute on chronic. still is elevated and now at 7.6. Patient did have an appointment to see GI in [facility] but has not had time to get to the appointment.will need to see them outpatient. She was to have an MRCP today however is too big for the machine and will need an open MRI. this will have to be done as an outpatient when seeing GI. Ultrasound and CT was completed to rule out other causing for liver enzyme and bilirubin elevation. cancer markers have also been done and are both elevated. (3) Ascites of liver Assessment/Plan: acute on chronic. patient is on spirolactone and Lasix for diuresis. she will need to see GI for worsening ascites since her liver cirrhosis has worsened. will continue to monitor LFT and worsening bilirubin levels. Ammonia levels have been checked as well. (4) Morbid obesity with BMI of 50.0-59.9, adult Assessment/Plan: chronic. patient was counseled on weight management but given her ascites and past failed Lap band procedure she has regained most of the weight and she has put on almost 30 pounds in the last two month. most of this is in her abdomen and bilateral lower legs and is likely fluids will continue to given lasix and spirolactone. (5) Hyponatremia Assessment/Plan: acute. will continue to monitor electrolytes with daily lab draws. She was given small amount of NS IV while NPO. 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 continue to monitor blood glucose with sliding scale and Accuchecks ACHS. diabetic diet. tylenol for pain and fever an oral [place] for moderate pain to lower legs. patient has been monitoring blood glucose better and her A1C has been better controlled. (7) Atrial fibrillation with controlled ventricular rate Assessment/Plan: chronic. continue on coumadin and is therapeutic. monitor INR and PT with daily lab draws. monitor for bleeding. telemetry monitoring. - Current Meds Current Meds: Current Medications Generic Name Dose Route Start Last Admin Trade Name Freq PRN Reason Stop Dose Admin Acetaminophen/Hydrocodone Bitart 1 tab 04/10/17 12:44 04/10/17 23:47 [place] 5/325 PO 1 tab Q4HR PRN Administration Pain 5 to 7 Insulin Aspart 1 - 5 unit 04/10/17 21:00 04/10/17 21:29 Novolog SUBQ Not Given 0800,1200,1700,2100 [facility] Protocol Insulin Glargine 10 unit 04/10/17 21:00 04/10/17 21:29 Lantus Solostar SUBQ 10 unit QPM BHUPINDER Administration Sodium Chloride 10 ml 04/10/17 14:00 04/11/17 06:18 Normal Saline Flush 0.9% IVP 10 ml Q8HR BHUPINDER Administration Spironolactone 25 mg 04/10/17 16:00 04/10/17 16:57 Aldactone PO 25 mg DAILY BHUPINDER Administration Trazodone HCl 50 mg 04/10/17 16:23 04/10/17 21:30 Desyrel PO 50 mg QPM PRN Administration Insomnia - Lab Result Lab results reviewed: Yes Fish Bone Diagrams: 04/11/17 05:48 04/11/17 05:48 Other Lab Results: Abnormal Lab Results 04/10/17 04/10/17 04/10/17 11:19 11:19 11:19 RBC 4.17 10^6/uL L 10^6/uL (4.20-5.40) Hct RDW 18.9 % H % (12.0-15.0) MPV 7.3 fL L fL (7.9-10.8) Lymph # 1.1 10^3/uL L 10^3/uL (1.5-3.5) PT 35.2 secs H secs (9.9-12.6) INR 3.1 H (0.8-1.2) Sodium 130 mmol/L L mmol/L (135-145) Chloride 96 mmol/L L mmol/L (101-111) Anion Gap BUN 37 mg/dL H mg/dL (6-20) Creatinine 1.4 mg/dL H mg/dL (0.4-1.0) Estimated GFR (MDRD) 37 L (>89) Glucose 145 mg/dL H mg/dL (70-100) Estim Average Glucose Total Bilirubin 7.4 mg/dL H mg/dL (0.2-1.0) GGT B-Natriuretic Peptide Albumin Globulin 4.6 g/dL H g/dL (2.1-4.2) Albumin/Globulin Ratio 0.7 L (1.0-2.2) Lipase 16 U/L L U/L (22-51) CA 125 Antigen 04/10/17 04/10/17 04/10/17 11:19 11:19 17:20 RBC Hct RDW MPV Lymph # PT INR Sodium Chloride Anion Gap BUN Creatinine Estimated GFR (MDRD) Glucose Estim Average Glucose 123 H (70-100) Total Bilirubin GGT 61 IU/L H IU/L (8-38) B-Natriuretic Peptide 315 pg/mL H pg/mL (5-100) Albumin Globulin Albumin/Globulin Ratio Lipase CA 125 Antigen 04/10/17 04/11/17 04/11/17 17:20 05:48 05:48 RBC 4.02 10^6/uL L 10^6/uL (4.20-5.40) Hct 36.7 % L % (37.0-47.0) RDW 18.9 % H % (12.0-15.0) MPV 7.0 fL L fL (7.9-10.8) Lymph # 1.4 10^3/uL L 10^3/uL (1.5-3.5) PT 34.0 secs H secs (9.9-12.6) INR 3.0 H (0.8-1.2) Sodium Chloride Anion Gap BUN Creatinine Estimated GFR (MDRD) Glucose Estim Average Glucose Total Bilirubin GGT B-Natriuretic Peptide Albumin Globulin Albumin/Globulin Ratio Lipase CA 125 Antigen 772.8 U/mL H U/mL (0.0-35.0) 04/11/17 05:48 RBC Hct RDW MPV Lymph # PT INR Sodium 132 mmol/L L mmol/L (135-145) Chloride 97 mmol/L L mmol/L (101-111) Anion Gap 14.0 H (6-13) BUN 39 mg/dL H mg/dL (6-20) Creatinine 1.5 mg/dL H mg/dL (0.4-1.0) Estimated GFR (MDRD) 34 L (>89) Glucose 119 mg/dL H mg/dL (70-100) Estim Average Glucose Total Bilirubin 7.6 mg/dL H mg/dL (0.2-1.0) GGT B-Natriuretic Peptide Albumin 3.0 g/dL L g/dL (3.2-5.5) Globulin Albumin/Globulin Ratio 0.7 L (1.0-2.2) Lipase CA 125 Antigen - EKG Results EKG Interpreted Independently: Yes - Diagnostic Imaging Results Diagnostic Imaging Results: Final report reviewed Diagnostic Imaging Results Comments: unable to perform MRCP since patient is too large to go in the machine and will need an open MRI - Additional Planning Condition/Complexity: Stable My Orders: My Active Orders 04/10/17 16:00 Spironolactone [Aldactone] 25 mg PO DAILY 04/10/17 16:23 traZODone [Desyrel] 50 mg PO QPM PRN 04/10/17 18:26 Blood Glucose Checks - Eating [RC] 0800,1200,1700,2100 Initiate Hypoglycemia Protocol [RC] .protocol 04/10/17 21:00 Insulin Aspart [NovoLOG] 1 - 5 unit SUBQ 0800,1200,1700,2100 Insulin Glargine [Lantus Solostar] 10 unit SUBQ QPM 04/11/17 06:00 MRCP W/O [MRI] Routine 04/11/17 07:01 Admit \ Transfer \ Status [RC] .ONCE 04/11/17 09:00 Furosemide [Lasix] 80 mg PO DAILY 04/11/17 14:00 Warfarin [Coumadin] 3 mg PO MOWEFR@1400 04/11/17 Breakfast DIET [Carb-controlled Diet] [DIET] 04/12/17 14:00 Warfarin [Coumadin] 2 mg PO SUTUTHSA@1400 Consult/Specialty: OT, PT Plan Discussed with:: Patient, Case Management Time Spent: 31-60 minutes Additional Planning Notes: patient will need outpatient followup with GI and will need to have an open MRI scheduled. Her PCP had originally set up the consult with GI but patient needs to make the appointment. She should discharge in the next 24 hours. Subjective - Subjective Patient Reports: Resting Comfortably, Other (edema in lower extremities same but not as painful. not getting up much.) Nursing Reports: No Complaints, Other (short of breath when up to the wheelchair for CT) Objective Vital Signs: Vital Signs - 24 hr 04/10/17 04/10/17 04/10/17 12:46 14:00 19:52 Temperature 36.4 C L 36.5 C Heart Rate 99 Heart Rate [ 99 95 Brachial] Respiratory 16 18 18 Rate Blood Pressure 109/86 H Blood Pressure 118/64 102/59 L [Left Brachial artery] O2 Saturation 97 96 94 04/10/17 04/10/17 04/11/17 23:46 23:57 06:00 Temperature 36.4 C L 36.5 C Heart Rate Heart Rate [ 106 H 94 98 Brachial] Respiratory 18 17 Rate Blood Pressure Blood Pressure 111/63 107/57 L [Left Brachial artery] O2 Saturation 92 96 93 Oxygen O2 Source Room air I&O (Last 24 Hrs): Intake and Output Totals x24h 04/09/17 04/10/17 04/11/17 23:59 23:59 23:59 Intake Total 525 Output Total 500 100 Balance 25 -100 General: Alert, Oriented x3, Cooperative, No acute distress HEENT: Atraumatic, PERRLA, EOMI Neck: Supple, No JVD, No thyromegaly, +2 carotid pulse wo bruit Lymphatic: no adenopathy Neuro: Alert, CN 2-12 Grossly Intact, Oriented Times 3 Cardiovascular: Regular rate, Normal S1, Normal S2, No murmurs Respiratory: Chest non-tender, No respiratory distress, Breath sounds nml Abdomen: Normal bowel sounds, No hepatospenomegaly, No masses, Other (ascites with wave across abdomen, tight skin) Extremities: No clubbing, No cyanosis, Other (bilateral lower leg edema 3+ with echymosis up to groin on bilateral legs. dry patches and weeping sores on lower left and right calf around ankle.) Skin: No rashes (erythema and edema), No breakdown - Results Results: Laboratory Results WBC 7.2 x10^3/uL (4.8-10.8) 04/11/17 05:48 RBC 4.02 10^6/uL (4.20-5.40) L 04/11/17 05:48 Hgb 12.3 g/dL (12.0-16.0) 04/11/17 05:48 Hct 36.7 % (37.0-47.0) L 04/11/17 05:48 MCV 91.2 fL (81.0-99.0) 04/11/17 05:48 MCH 30.6 pg (27.0-31.0) 04/11/17 05:48 MCHC 33.6 g/dL (32.0-36.0) 04/11/17 05:48 RDW 18.9 % (12.0-15.0) H 04/11/17 05:48 Plt Count 182 10^3/uL (130-450) 04/11/17 05:48 MPV 7.0 fL (7.9-10.8) L 04/11/17 05:48 Neut # 4.5 10^3/uL (1.5-6.6) 04/11/17 05:48 Lymph # 1.4 10^3/uL (1.5-3.5) L 04/11/17 05:48 [place] # 1.0 10^3/uL (0.0-1.0) 04/11/17 05:48 Eos # 0.3 10^3/uL (0.0-0.7) 04/11/17 05:48 Baso # 0.1 10^3/uL (0.0-0.1) 04/11/17 05:48 Absolute Nucleated RBC 0.00 x10^3/uL 04/11/17 05:48 Nucleated RBC % 0.0 /100WBC 04/11/17 05:48 PT 34.0 secs (9.9-12.6) H 04/11/17 05:48 INR 3.0 (0.8-1.2) H 04/11/17 05:48 Sodium 132 mmol/L (135-145) L 04/11/17 05:48 Potassium 3.7 mmol/L (3.5-5.0) 04/11/17 05:48 Chloride 97 mmol/L (101-111) L 04/11/17 05:48 Carbon Dioxide 21 mmol/L (21-32) 04/11/17 05:48 Anion Gap 14.0 (6-13) H 04/11/17 05:48 BUN 39 mg/dL (6-20) H 04/11/17 05:48 Creatinine 1.5 mg/dL (0.4-1.0) H 04/11/17 05:48 Estimated GFR (MDRD) 34 (>89) L 04/11/17 05:48 Glucose 119 mg/dL (70-100) H 04/11/17 05:48 Glycated Hemoglobin 5.9 % (4.6-6.2) 04/10/17 11:19 Estim Average Glucose 123 (70-100) H 04/10/17 11:19 Calcium 9.2 mg/dL (8.5-10.3) 04/11/17 05:48 Phosphorus 3.4 mg/dL (2.5-4.6) 04/10/17 17:20 Magnesium 2.4 mg/dL (1.7-2.8) 04/10/17 17:20 Total Bilirubin 7.6 mg/dL (0.2-1.0) H 04/11/17 05:48 GGT 61 IU/L (8-38) H 04/10/17 17:20 AST 34 IU/L (10-42) 04/11/17 05:48 ALT 14 IU/L (10-60) 04/11/17 05:48 Alkaline Phosphatase 92 IU/L (42-121) 04/11/17 05:48 Troponin I 0.04 ng/mL (<0.49) 04/10/17 11:19 B-Natriuretic Peptide 315 pg/mL (5-100) H 04/10/17 11:19 Total Protein 7.1 g/dL (6.7-8.2) 04/11/17 05:48 Albumin 3.0 g/dL (3.2-5.5) L 04/11/17 05:48 Globulin 4.1 g/dL (2.1-4.2) 04/11/17 05:48 Albumin/Globulin Ratio 0.7 (1.0-2.2) L 04/11/17 05:48 Amylase 30 U/L (28-100) 04/11/17 05:48 Lipase 16 U/L (22-51) L 04/10/17 11:19 Carcinoembryonic Ag 8.7 ng/mL 04/10/17 17:20 CA 125 Antigen 772.8 U/mL (0.0-35.0) H 04/10/17 17:20 - Procedures Procedures: ultrasound of the abdomen complete with pending results CT of the chest with pending results
[2017-04-11] MEDS: INSULIN ASPART 300 UNIT/3 ML PEN SUBQ SCH ×4 (08:00→21:23)
[2017-04-11] MEDS: FUROSEMIDE 40 MG TABLET PO SCH (10:08)
[2017-04-11] MEDS: POLYETHYLENE GLYCOL 3350 17 GM PACKET PO SCH (10:09)
[2017-04-11] MEDS: HYDROcod/ACETAM 5/325 MG TABLET PO PRN ×3 (10:09→21:33)
[2017-04-11] MEDS: SODIUM CHLORIDE 0.9% 1,000 ML IV SCH ×2 (10:09→22:38)
[2017-04-11] MEDS: SPIRONOLACTONE 25 MG TABLET PO SCH (10:09)
[2017-04-11] MEDS ORDERED: LORazepam 2 MG/ML SYRINGE IVP SCH (11:00)
[2017-04-11] MEDS: WARFARIN 1 MG TABLET PO SCH (15:02)
[2017-04-11] MEDS: traZODone 50 MG TABLET PO PRN (21:33)
[2017-04-11] MEDS: INSULIN GLARGINE 300 UNIT/3 ML PEN SUBQ SCH (21:34)
[2017-04-12] MEDS: HYDROcod/ACETAM 5/325 MG TABLET PO PRN ×3 (01:29→20:38)
[2017-04-12] MEDS: SODIUM CHLORIDE FLUSH 0.9% 10 ML SYRINGE IVP SCH ×3 (05:17→20:40)
[2017-04-12 05:43] LABS: BASOPHILS % (AUTO) 0.2 %; EOSINOPHILS # (AUTO) 0.3 10^3/uL (0.0-0.7); EOSINOPHILS % (AUTO) 4.3 %; HCT - HEMATOCRIT 36.4 % (37.0-47.0); HGB - HEMOGLOBIN 12.1 g/dL (12.0-16.0); LYMPHOCYTES # (AUTO) 1.4 10^3/uL (1.5-3.5); LYMPHOCYTES % (AUTO) 20.2 %; MEAN CORPUSCULAR HEMOGLOBIN 30.6 pg (27.0-31.0); MEAN CORPUSCULAR HGB CONC 33.3 g/dL (32.0-36.0); MEAN PLATELET VOLUME 6.9 fL (7.9-10.8); MONOCYTES # (AUTO) 0.9 10^3/uL (0.0-1.0); MONOCYTES % (AUTO) 12.4 %; NEUTROPHILS # (AUTO) 4.5 10^3/uL (1.5-6.6); NEUTROPHILS % (AUTO) 62.9 %; NUCLEATED RED BLOOD CELLS AUTO 0.1 /100WBC; RED BLOOD COUNT 3.96 10^6/uL (4.20-5.40); UNCORRECTED WHITE BLOOD COUNT 7.2 x10^3/uL; WHITE BLOOD COUNT 7.2 x10^3/uL (4.8-10.8)
[2017-04-12 05:57] LABS: ALBUMIN/GLOBULIN RATIO 0.7 (1.0-2.2); BILIRUBIN,TOTAL 7.5 mg/dL (0.2-1.0); CREATININE 1.6 mg/dL (0.4-1.0); POTASSIUM 3.6 mmol/L (3.5-5.0); TOTAL PROTEIN 6.8 g/dL (6.7-8.2)
[2017-04-12] MEDS: FUROSEMIDE 40 MG TABLET PO SCH (08:23)
[2017-04-12] MEDS: SPIRONOLACTONE 25 MG TABLET PO SCH (08:23)
[2017-04-12] MEDS: INSULIN ASPART 300 UNIT/3 ML PEN SUBQ SCH ×4 (08:23→20:40)
[2017-04-12] MEDS: POLYETHYLENE GLYCOL 3350 17 GM PACKET PO SCH (08:23)
--- NOTE | 2017-04-12 09:18 | PROVIDER PROGRESS NOTE ---
Subjective - Prog Note Date Prog Note Date: 04/12/17 Prog Note Time: 09:16 - Subjective Pt reports feeling: No change (Patient was slowly eating breakfast in bed and prefers to be called "Pooja". She complains of tailbone discomfort, but notes that the heating pad with pain pills are relieving this. She is encouraged that her appetite is coming back along with her sense of taste.) Objective - Vital Signs/Intake & Output Reviewed Vital Signs: Yes Intake & Output: Intake & Output 04/09/17 04/10/17 04/11/17 04/12/17 23:59 23:59 23:59 23:59 Intake Total 1510 1194.164 Output Total 100 250 Balance 1410 944.164 - Objective General Appearance: positive: No acute distress Skin: positive: Dry, Decubitus, Other (mild jaundice) Neurologic/Psychiatric: positive: Oriented x3 - Lab Results Fish Bones: 04/12/17 05:28 04/12/17 05:28 Other Labs: Lab Results x24hrs 04/12/17 04/12/17 04/11/17 Range/Units 05:28 05:28 16:14 WBC 7.2 (4.8-10.8) x10^3/uL RBC 3.96 L (4.20-5.40) 10^6/uL Hgb 12.1 (12.0-16.0) g/dL Hct 36.4 L (37.0-47.0) % MCV 92.0 (81.0-99.0) fL MCH 30.6 (27.0-31.0) pg MCHC 33.3 (32.0-36.0) g/dL RDW 19.0 H (12.0-15.0) % Plt Count 172 (130-450) 10^3/uL MPV 6.9 L (7.9-10.8) fL Neut # 4.5 (1.5-6.6) 10^3/uL Lymph # 1.4 L (1.5-3.5) 10^3/uL Dorado # 0.9 (0.0-1.0) 10^3/uL Eos # 0.3 (0.0-0.7) 10^3/uL Baso # 0.0 (0.0-0.1) 10^3/uL Absolute Nucleated RBC 0.01 x10^3/uL Nucleated RBC % 0.1 /100WBC Sodium 132 L (135-145) mmol/L Potassium 3.6 (3.5-5.0) mmol/L Chloride 99 L (101-111) mmol/L Carbon Dioxide 21 (21-32) mmol/L Anion Gap 12.0 (6-13) BUN 39 H (6-20) mg/dL Creatinine 1.6 H (0.4-1.0) mg/dL Estimated GFR (MDRD) 32 L (>89) Glucose 153 H (70-100) mg/dL Calcium 9.0 (8.5-10.3) mg/dL Total Bilirubin 7.5 H (0.2-1.0) mg/dL AST 32 (10-42) IU/L ALT 14 (10-60) IU/L Alkaline Phosphatase 84 (42-121) IU/L Ammonia 48.7 H (7-35) umol/L Total Protein 6.8 (6.7-8.2) g/dL Albumin 2.8 L (3.2-5.5) g/dL Globulin 4.0 (2.1-4.2) g/dL Albumin/Globulin Ratio 0.7 L (1.0-2.2) - Diagnostic Imaging Diagnostic Imaging Results: positive: Prelim report reviewed Assessment/Plan - Problem List (1) Hyperbilirubinemia Impression: Patient has slight jaundice noted with probable mets. We will continue to monitor changes and LFT/bili levels (2) Bilateral lower extremity edema Impression: Chronic edema related to body habitus and a BMI of 52. Patient has had a theraputic INR of greater than 2 and continues on Warfarin. (3) Pressure ulcer of coccygeal region Impression: Patient complains of her "tailbone" being sore. Nursing communication order for frequent turns. Unable to obtain low air loss air mattress while at this hospital. Qualifiers: Pressure ulcer stage: stage 1 Qualified Code(s): L89.151 - Pressure ulcer of sacral region, stage 1 (4) Carcinoembryonic antigen (CEA) elevation Impression: A CEA was elevated, patient is aware that she likely has cancer. Further work- up is recommended. (5) Morbid (severe) obesity due to excess calories Impression: We will continue to monitor I/O and weights. 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 (7) Chronic atrial fibrillation Impression: Patient is anticoagulated on warfarin with a theraputic INR greater than 2. (8) Diastolic CHF with preserved left ventricular function, NYHA class 2 Impression: Echo results were revealed to patient, noting a right sided heart failure with preserved EF of 70% We will continue to monitor for signs of worsening edema. Furosemide IV has been placed on hold today due to worsening creatinine and hyponatremia.
[2017-04-12] MEDS ORDERED: BACITRACIN OINT TOP ONE (10:32)
[2017-04-12] MEDS: SODIUM CHLORIDE 0.9% 1,000 ML IV SCH ×2 (11:21→22:22)
--- NOTE | 2017-04-12 13:04 | CT Report ---
NONCONTRAST CHEST CT: 04/11/2017 CLINICAL INDICATION: Pulmonary nodule evaluation. COMPARISON: Abdomen/pelvis CT 04/10/2017. TECHNIQUE: Noncontrast axial imaging of the chest at 5 mm collimation. Coronal and sagittal reformats. FINDINGS: There is [id number] consolidation and/or atelectasis of the right middle lobe and right lower lobe. Pulmonary nodules are as follows: Solid 2 mm left lower lobe, image 52. Solid subpleural left lung base 6 mm, image 50. Solid 2 and 3 mm, images 49 and 48, respectively. Solid 2 mm left mid lung, image 30. Calcified granuloma of the posterior right mid lung, image 32. No mediastinal or hilar adenopathy. There is a small right pleural effusion, similar to the prior exam. There are atherosclerotic calcifications of the coronary arteries and dense calcifications of the mitral valve annulus. Gastric band is in place. There is mild to moderate ascites and anasarca. Limited liver and spleen appear unremarkable. The pancreas is atrophic but otherwise unremarkable. The adrenal glands appear unremarkable. There are left renal stones, incompletely evaluated, but they appear nonobstructive. There are multiple gallstones. No bone lesions are demonstrated. The soft tissues appear unremarkable in other regards. IMPRESSION 1. [id number] CONSOLIDATION AND/OR ATELECTASIS OF THE RIGHT MIDDLE LOBE AND RIGHT LOWER LOBE. CLINICALLY CONSIDER PNEUMONIA. OTHER PROCESSES ARE DIFFICULT TO EXCLUDE. 2. SMALL PULMONARY NODULES WARRANT FOLLOWUP EVALUATION IN ACCORDANCE WITH [employer]. In accordance with CT protocol optimization, one or more of the following dose reduction techniques were utilized for this exam: automated exposure control, adjustment of mA and/or KV based on patient size, or use of iterative reconstructive technique. MTDD
[2017-04-12] MEDS ORDERED: WARFARIN 1 MG TABLET PO SCH (14:00)
[2017-04-12] MEDS: INSULIN GLARGINE 300 UNIT/3 ML PEN SUBQ SCH (20:39)
[2017-04-13] MEDS: traZODone 50 MG TABLET PO PRN (00:09)
[2017-04-13] MEDS: SODIUM CHLORIDE FLUSH 0.9% 10 ML SYRINGE IVP SCH ×2 (04:25→12:47)
[2017-04-13 05:34] LABS: CALCIUM 9.3 mg/dL (8.5-10.3); CREATININE 1.7 mg/dL (0.4-1.0); POTASSIUM 3.8 mmol/L (3.5-5.0)
[2017-04-13] MEDS: POLYETHYLENE GLYCOL 3350 17 GM PACKET PO SCH (07:52)
[2017-04-13] MEDS: SPIRONOLACTONE 25 MG TABLET PO SCH (07:53)
[2017-04-13] MEDS: HYDROcod/ACETAM 5/325 MG TABLET PO PRN ×2 (07:53→14:45)
[2017-04-13] MEDS: INSULIN ASPART 300 UNIT/3 ML PEN SUBQ SCH ×3 (07:56→17:34)
--- NOTE | 2017-04-13 08:32 | PROVIDER PROGRESS NOTE ---
Subjective - Prog Note Date Prog Note Date: 04/13/17 Prog Note Time: 08:32 Objective - Vital Signs/Intake & Output Vital Signs: Vital Signs x48h Temp Pulse Resp BP Pulse Ox 04/13/17 07:26 36.5 C 82 18 109/62 93 Intake & Output: Intake & Output 04/10/17 04/11/17 04/12/17 04/13/17 23:59 23:59 23:59 23:59 Intake Total 1510 3064.383 847 Output Total 100 500 300 Balance 1410 2564.383 547 - Lab Results Fish Bones: 04/12/17 05:28 04/13/17 05:02 Other Labs: Lab Results x24hrs 04/13/17 04/13/17 04/12/17 Range/Units 07:20 05:02 20:34 Sodium 134 L (135-145) mmol/L Potassium 3.8 (3.5-5.0) mmol/L Chloride 99 L (101-111) mmol/L Carbon Dioxide 22 (21-32) mmol/L Anion Gap 13.0 (6-13) BUN 43 H (6-20) mg/dL Creatinine 1.7 H (0.4-1.0) mg/dL Estimated GFR (MDRD) 30 L (>89) Glucose 141 H (70-100) mg/dL POC Whole Bld Glucose 126 H 176 H (70 - 100) mg/dL Calcium 9.3 (8.5-10.3) mg/dL 04/12/17 04/12/17 04/12/17 Range/Units 16:46 11:52 07:17 Sodium (135-145) mmol/L Potassium (3.5-5.0) mmol/L Chloride (101-111) mmol/L Carbon Dioxide (21-32) mmol/L Anion Gap (6-13) BUN (6-20) mg/dL Creatinine (0.4-1.0) mg/dL Estimated GFR (MDRD) (>89) Glucose (70-100) mg/dL POC Whole Bld Glucose 150 H 163 H 143 H (70 - 100) mg/dL Calcium (8.5-10.3) mg/dL 04/11/17 04/11/17 04/11/17 Range/Units 20:29 16:48 11:23 Sodium (135-145) mmol/L Potassium (3.5-5.0) mmol/L Chloride (101-111) mmol/L Carbon Dioxide (21-32) mmol/L Anion Gap (6-13) BUN (6-20) mg/dL Creatinine (0.4-1.0) mg/dL Estimated GFR (MDRD) (>89) Glucose (70-100) mg/dL POC Whole Bld Glucose 123 H 108 H 123 H (70 - 100) mg/dL Calcium (8.5-10.3) mg/dL 04/11/17 Range/Units 07:39 Sodium (135-145) mmol/L Potassium (3.5-5.0) mmol/L Chloride (101-111) mmol/L Carbon Dioxide (21-32) mmol/L Anion Gap (6-13) BUN (6-20) mg/dL Creatinine (0.4-1.0) mg/dL Estimated GFR (MDRD) (>89) Glucose (70-100) mg/dL POC Whole Bld Glucose 123 H (70 - 100) mg/dL Calcium (8.5-10.3) mg/dL Assessment/Plan - Problem List (3) Pressure ulcer of coccygeal region Qualifiers: Pressure ulcer stage: stage 1 Qualified Code(s): L89.151 - Pressure ulcer of sacral region, stage 1
--- NOTE | 2017-04-13 11:20 | Ultrasound Report ---
ABDOMINAL ULTRASOUND: 04/11/2017 COMPARISON STUDY: Abdomen and pelvis CT earlier in the day. INDICATION: Rule out hepatic mass. TECHNIQUE: Sonographic evaluation of the upper abdomen was performed. FINDINGS: The liver appears normal in size and contour without demonstrated masses. There are galls tones without gallbladder wall thickening or surrounding fluid. Negative Etienne sign. Common bile d uct is not dilated. The right kidney appears grossly unremarkable. Ascites is noted. The spleen and left kidney are not visualized due to anasarca. Limited pancreas evaluation is unremarkable. IMPRESSION: NO EVIDENCE OF HEPATIC MASS. JOB #: [id number] EXT JOB #:[id number]
[2017-04-13] MEDS: WARFARIN 1 MG TABLET PO SCH (13:28)
--- NOTE | 2017-04-13 14:22 | CONSULTATION NOTE ---
Referring Provider Name of Referring Provider:: Ana Molina Consult Date: 04/13/17 Chief Complaint - Chief Complaint Chief Complaint: evaluate abnormal liver function tests, ascites, and elevated tumor markers History of Present Illness - Admitted From Admitted From:: ER - History Obtained From Records Reviewed: yes History obtained from: patient - History of Present Illness HPI Comment/Other: 71 yo female with hx of morbid obesity, approximately 10 years s/p lap band procedure with approximately 200# wt loss, did well until approx 18 months ago when noted progressive gradual weight gain, approximately 75 lbs over this period, associated with marked swelling of her lower extremities and increasing REYES over the last 2 months, resulting in presentation to the ER several days ago and subsequent admission. She was noted to have abnormal lft's with total bili of 7, no elevation of transaminases, nl alk phos, and mild elevation of GGT (68) with low albumin (2.8) and elevated ammonia level. She has a hx of elevated bili since at least 2014, when it was approximately 2. No hx abdominal pain, change in bowel habits, food intolerance, hepatitis, high risk behaviours , STDs, IV drug abuse, blood transfusions, N/V, fever/chills. Denies electric meter technician sx, underwent menopause in her 50s, no vaginal bleeding, no melena, hematochezia, urinary sx. Non smoker, non drinker. Evaluation has included abd US showing cholelithiasis, ascites and a small liver. ABD/Pelvic CT confirms same, shows no masses in liver, pancreas or pelvis but study was limited by lack of contrast (IV or oral) and body habitus. Noncontrast chest CT confirms above plus shows multiple tiny bilateral pulmonary nodules of unclear significance for which f/ u is recommended. Labs also show evidence of renal insufficiency, mild elevation of CEA (8.7), and marked elevation of CA-125 (700s). Echocardiogram shows severe pulmonary hypertension, and concentric LVH. She reports having a nl colonoscopy approximately 10 years ago and a neg FH GI or SENIOR GL ACCOUNTANT tumors. History - Past Medical History Cardiovascular: reports: Hypertension, High cholesterol, Atrial fibrillation, Murmur, Other. 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 - Substance History Use: Uses substance without health or social issues: NONE Meds/Allgy - Home Medications Home Medications: Ambulatory Orders Medication Instructions Recorded Confirmed Furosemide [Lasix] 80 - 160 mg PO DAILY 03/13/15 04/10/17 Insulin Glargine,Hum.rec.anlog 15 - 25 units SUBQ BID 03/13/15 04/10/17 [Lantus] Potassium Chloride 20 meq PO DAILY 04/10/17 04/10/17 Warfarin [Coumadin] 2 mg PO SUTUTHSA@1400 04/10/17 04/10/17 Warfarin [Coumadin] 3 mg PO MOWEFR@1400 04/10/17 04/10/17 traZODone [Desyrel] 50 mg PO QPM PRN 04/10/17 04/10/17 - Allergies Allergies/Adverse Reactions: Allergies Allergy/AdvReac Type Severity Reaction Status Date / Time amlodipine besylate * AdvReac Unknown Verified 03/08/17 01:57 [From [facility]] codeine AdvReac Hallucinati Verified 03/08/17 01:57 ons Review of Systems - Constitutional Constitutional: reports: Weight gain - Cardiovascular Cariovascular: reports: Edema, Exertional dyspnea, Decr. exercise tolerance. denies: Chest pain - Respiratory Respiratory: reports: Snoring, Orthopnea, SOB with exertion - Gastrointestinal Gastrointestinal: reports: Constipation. denies: Abdominal pain, Abdominal distention, Diarrhea, Change in bowel habits, Rectal bleeding, Black stools, Bloody stools, Nausea, Vomiting, Bile emesis, Darrel blood emesis, Coffee grounds emesis, Reflux/heartburn, Bloating - Integumentary Integumentary: reports: Rash (on lower extremities over past several weeks.) - Other Findings Other Findings: negative for bleeding diathesis or thrombosis. Exam - Vital Signs Reviewed Vital Signs: Yes Vital Signs: Vital Signs x48h Temp Pulse Resp BP Pulse Ox 04/13/17 07:26 36.5 C 82 18 109/62 93 BMI 52 - Physical Exam General Appearance: positive: No acute distress, Alert Eyes Bilateral: negative: No scleral icterus (mild scleral icterus is noted) ENT: positive: Pharynx nml Neck: negative: No JVD (marked JVD is noted with pt head elevated 30 degrees) Respiratory: positive: Chest non-tender, No respiratory distress, Breath sounds nml. negative: Wheezes, Rales, Rhonchi Cardiovascular: positive: No gallop, Irregularly irregular, Systolic murmur (2/ 6 marcos) Abdomen: positive: Non-tender, Nml bowel sounds, Other (marked truncal obesity limits examination; edematous skin inferior to umbilicus with peau d'orange). negative: Hepatomegaly, Splenomegaly, Mass Skin: positive: Skin rash (erythematous confluent rash over anterior thighs bilaterally), Other (left distal lateral foot: 1 cm diameter ulcer surrounded by callus, appears Stage 2) Extremities: positive: Pedal edema (marked diffuse edema of both lower extremities from groins down). negative: Calf tenderness Neurologic/Psychiatric: positive: Oriented x3, Mood/affect nml Conclusion/Plan - Diagnosis Diagnosis: 1. 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 2. Ascites-also likely due to right heart failure, possibly in association with hepatic cirrhosis. 3. Elevated [id number] for occult electric meter technician malignancy (ovarian, primary peritoneal ca). 3. Elevated CEA-mild and likely related to renal insufficiency. 4. pulmonary hypertension-etiology unclear at present; PE should certainly be excluded. 5. Bilateral pulmonary nodules of unclear significance. Their small size makes characterization difficult at this time and will likely require f/u. 6. Morbid obesity, possibly contributing to heart and liver disease. - Plan Plan: Agree with present medical management. Consider repeat CT of abd/pelvis with contrast or MRI for further evaluation of occult malignancy. Consider liver biopsy for further evaluation of liver disease. Consider CTA to r/o pumonary emboli. Consider electric meter technician consultation; she may need diagnostic laparoscopy for definitive dx. - Lab Results Lab results reviewed: Yes Fish Bones: 04/12/17 05:28 04/13/17 05:02 Other Lab Results: GGT 68; CEA 8.7; CA-125:776 Labs, EKG, Meds, Allergy - Lab Results Fish Bones: 04/12/17 05:28 04/13/17 05:02 Other Lab Results: Lab Results x24hrs 04/13/17 04/13/17 04/13/17 Range/Units 11:30 07:20 05:02 Sodium 134 L (135-145) mmol/L Potassium 3.8 (3.5-5.0) mmol/L Chloride 99 L (101-111) mmol/L Carbon Dioxide 22 (21-32) mmol/L Anion Gap 13.0 (6-13) BUN 43 H (6-20) mg/dL Creatinine 1.7 H (0.4-1.0) mg/dL Estimated GFR (MDRD) 30 L (>89) Glucose 141 H (70-100) mg/dL POC Whole Bld Glucose 144 H 126 H (70 - 100) mg/dL Calcium 9.3 (8.5-10.3) mg/dL 04/12/17 04/12/17 Range/Units 20:34 16:46 Sodium (135-145) mmol/L Potassium (3.5-5.0) mmol/L Chloride (101-111) mmol/L Carbon Dioxide (21-32) mmol/L Anion Gap (6-13) BUN (6-20) mg/dL Creatinine (0.4-1.0) mg/dL Estimated GFR (MDRD) (>89) Glucose (70-100) mg/dL POC Whole Bld Glucose 176 H 150 H (70 - 100) mg/dL Calcium (8.5-10.3) mg/dL - Echo Results Echo Results: positive: Report reviewed - Other Diagnostic Imaging Results Diagnostic Imaging Results Comments: Abd US and CT chest, abd, and pelvis reviewed by me-images as well as reports and findings noted. - Medications Medications: Ambulatory Orders Medication Instructions Recorded Confirmed Furosemide [Lasix] 80 - 160 mg PO DAILY 03/13/15 04/10/17 Insulin Glargine,Hum.rec.anlog 15 - 25 units SUBQ BID 03/13/15 04/10/17 [Lantus] Potassium Chloride 20 meq PO DAILY 04/10/17 04/10/17 Warfarin [Coumadin] 2 mg PO SUTUTHSA@1400 04/10/17 04/10/17 Warfarin [Coumadin] 3 mg PO MOWEFR@1400 04/10/17 04/10/17 traZODone [Desyrel] 50 mg PO QPM PRN 04/10/17 04/10/17 - Allergy Allergy: Allergies Allergy/AdvReac Type Severity Reaction Status Date / Time amlodipine besylate * AdvReac Unknown Verified 03/08/17 01:57 [From [facility]] codeine AdvReac Hallucinati Verified 03/08/17 01:57 ons Furosemide [Lasix] 80 - 160 mg PO DAILY 03/13/15 Insulin Glargine,Hum.rec.anlog [Lantus] 15 - 25 units SUBQ BID 03/13/15 Potassium Chloride 20 meq PO DAILY 04/10/17 Warfarin [Coumadin] 2 mg PO SUTUTHSA@1400 04/10/17 Warfarin [Coumadin] 3 mg PO MOWEFR@1400 04/10/17 traZODone [Desyrel] 50 mg PO QPM PRN 04/10/17
[2017-04-13] MEDS ORDERED: FUROSEMIDE 100 MG/10 ML VIAL IVP ONE (16:43)
--- NOTE | 2017-04-13 16:49 | Discharge Plan ---
Discharge Plan Disposition: 02 Transfer Acute Care Hosp Condition: Stable Diet: Low Sodium Activity Restrictions: Wt Bearing as Tolerated Shower Restrictions: No Driving Restrictions: Yes Assistance Devices: Walker Weight Bearing: Full Weight No Smoking: If you smoke, Please STOP! Call for help. Follow-up with: Celi Robert DO [Primary Care Provider] -
--- NOTE | 2017-04-13 17:18 | DISCHARGE SUMMARY ---
Discharge Summary Admit Date: 04/11/17 Discharge Date: 04/13/17 Discharging Provider: Farida Primary Care Provider: Wendy Shah Code Status: Attempt Resuscitation Condition at Discharge: Stable Discharge Disposition: 02 Transfer Acute Care Hosp Discharge Facility Name: [facility] - DIAGNOSES Admission Diagnoses: Hyperbilirubinemia BLE edema Pressure ulcer of sacral region Elevated carcinoembryonic antigen Morbid obesity-severe BMI 52 Type 2 diabetes mellitus with diabetic neuropathy Chronic atrial fibrillation Severe systolic CHF Discharge Diagnoses with Status of Each Condition: Severe systolic CHF Severe right heart failure Hyperbilirubemia Bilateral low extremity edema Severe morbid obesity Chronic atrial fibrillation Pressure ulcer sacral region Type 2 diabetes mellitus with neuropathy *See hospital course below for status of each condition* - HPI History of Present Illness: Mary Ndiaye is a morbidly obese 71-year old female with a past medical history of lap banding 10 years ago for weight loss-highest wt was 500lbs, HTN, hypercholesterolemia, atrial fibrillation-on coumadin, heart murmur, insulin dependent diabetes mellitus type 2, osteomyelitis- L & R toe amputation and lymphedema. The patient notes that she was in her usual state of health when approximately a couple of days ago she started having gradual onset of shortness of breath and more BLE edema. She admits to this occurring for the first time up to 8 months ago and had gained at least 70 lbs, accompanied by orthopnea until the time of this admission. She had gone in to see her PCP at the clinic who prescribed furosemide for BLE edema and labs showed an elevated bilirubin. Once in the ED a CT of the abdomen/pelvis showed multiple pulmonary nodules, diffuse anasarca, multiple nonobstructing stones in L kidney, multiple gall stones, atrophy of pancreas, mild abdominal ascities, trace R pleural effusion, and an enlarged intrahepatic inferior vena cava. A chest x-ray showed pulmonary edema. The patient was admitted for further evaluation for SOB , wt gain and worsening BLE edema. - CONSULTS | PROCEDURES Consultations: General surgery - HOSPITAL COURSE Hospital Course: (1) Severe Systolic CHF with preserved EF: Impression: Echo results were revealed to patient, noting a right sided heart failure with preserved EF of 70% We will continue to monitor for signs of worsening edema. Furosemide IV has been placed on hold on 04/12/17 due to worsening creatinine and hyponatremia. Per [facility] calderon MD, we will administer one dose of IV lasix 80mg x1 before discharge. (2) Hyperbilirubinemia Impression: Patient has slight jaundice noted with possible mets, according to CT of abdomen /pelvis on admission. We will continue to monitor changes and LFT/bili levels. (3) Bilateral lower extremity edema Impression: Chronic edema related to body habitus and a BMI of 52. Patient has had a theraputic INR of greater than 2 and continues on Warfarin. Furosemide IV was held on 04/12/17, with worsening creatinine levels. Edema in abdomen and BLE is remarkably worse today, so a one time dose of 80mg IV was administered at the time of transfer. (4) Pressure ulcer of coccygeal region Impression: Patient complains of her "tailbone" being sore. Nursing communication order for frequent turns. Unable to obtain low air loss air mattress while at this hospital. Qualifiers: Pressure ulcer stage: stage 1 Qualified Code(s): L89.151 - Pressure ulcer of sacral region, stage 1 (5) Carcinoembryonic antigen (CEA) elevation: Impression: A CEA was elevated at 8.7, patient of this elevated cancer marker. Further work -up is recommended. Plans for MRCP verses MRI as an outpatient or at next facility. (6) Morbid (severe) obesity: Impression: We will continue to monitor I/O and weights. Last weight was 382lbs, 174kg. Patient has gained 70+lbs in the past 8 months. She is status post lap band surgery 10 years ago, with her highest weight being 500lbs. (7) Uncontrolled insulin-dependent diabetes mellitus with neuropathy Impression: Last A1C was 5.9, and we will continue to monitor blood glucose and make insulin adjustments as needed. Patient was taking Lantus at home. (8) Chronic atrial fibrillation Impression: Patient is anticoagulated on warfarin with a theraputic INR greater than 2. She continues in this rhythm. -DVT prophylaxis with theraputic coumadin therapy. 120 minutes was spent on this discharge/transfer including patient and family counseling. - ALLERGIES Allergies/Adverse Reactions: Allergies Allergy/AdvReac Type Severity Reaction Status Date / Time amlodipine besylate * AdvReac Unknown Verified 03/08/17 01:57 [From [facility]] codeine AdvReac Hallucinati Verified 03/08/17 01:57 ons - MEDICATIONS Home Medications: Ambulatory Orders Medication Instructions Recorded Confirmed Furosemide [Lasix] 80 - 160 mg PO DAILY 03/13/15 04/10/17 Insulin Glargine,Hum.rec.anlog 15 - 25 units SUBQ BID 03/13/15 04/10/17 [Lantus] Potassium Chloride 20 meq PO DAILY 04/10/17 04/10/17 Warfarin [Coumadin] 2 mg PO SUTUTHSA@1400 04/10/17 04/10/17 Warfarin [Coumadin] 3 mg PO MOWEFR@1400 04/10/17 04/10/17 traZODone [Desyrel] 50 mg PO QPM PRN 04/10/17 04/10/17 HYDROcod/ACETAM 5/325 [Trevett 5/325] 1 tab PO Q4HR PRN tablet 04/13/17 Insulin Aspart [NovoLOG] 1 - 5 unit SUBQ 04/13/17 0800,1200,1700,2100 pen Insulin Glargine [Lantus Solostar] 10 unit SUBQ QPM pen 04/13/17 Ondansetron Odt [Zofran Odt] 4 mg TL Q6HR PRN tablet 04/13/17 Polyethylene Glycol 3350 [Miralax] 17 gm PO DAILY packet 04/13/17 Spironolactone [Aldactone] 25 mg PO BID tablet 04/13/17 Home Medications Other | Comments: Medications Summary Discontinued Medications Acetaminophen/Hydrocodone Bitart (Trevett 5/325) 1 tab PO Q4HR PRN PRN Reason: Pain 5 to 7 Last Admin: 04/13/17 14:45 Dose: 1 tab Pain Assessment Document 04/13/17 14:45 FREELANCE DISPLAYER (Rec: 04/13/17 14:45 FREELANCE DISPLAYER [id number]) Pain Level Pain Scale Used 0-10 Intensity (0-10) 7 Re-Assess: Pain Reassessment Document 04/13/17 15:45 HDP (Rec: 04/13/17 17:48 HDP [id number]) Reassessment Effective/Ineffective Effective Bacitracin (Bacitracin) Confirm Administered Dose 1 packet TOP .STK-MED ONE Stop: 04/12/17 10:33 Last Admin: 04/12/17 10:51 Dose: 1 packet Bumetanide (Bumex Inj) 1 mg IVP ONCE STA Stop: 04/10/17 12:36 Last Admin: 04/10/17 15:38 Dose: 1 mg Enoxaparin Sodium (Lovenox) 40 mg SUBQ DAILY [facility] Last Admin: 04/10/17 15:43 Dose: 40 mg Subcutaneous Injection Site Document 04/10/17 15:43 SC (Rec: 04/10/17 15:44 SC [id number]) Site Subcutaneous Injection Site Right Abdomen Furosemide (Lasix Inj 40 Mg Vial) 80 mg IVP ONCE STA Stop: 04/10/17 11:12 Last Admin: 04/10/17 11:25 Dose: 80 mg Furosemide (Lasix) 80 mg PO DAILY [facility] Last Admin: 04/12/17 08:23 Dose: 80 mg Furosemide (Lasix Inj 100mg Vial) 80 mg IVP ONCE ONE Stop: 04/13/17 16:44 Last Admin: 04/13/17 17:45 Dose: 80 mg Sodium Chloride (Normal Saline 0.9%) 1,000 mls @ 83.333 mls/hr IV .Q12H [facility] Last Infusion: 04/13/17 09:05 Dose: 83 mls/hr Medication Titration Document 04/13/17 09:05 FREELANCE DISPLAYER (Rec: 04/13/17 09:07 FREELANCE DISPLAYER [id number]) Titration Intake Titration Intake 110.517 Cumulative Intake 1,000 Container Volume 0 Elapsed Time 46h 48m Titration Dosing IV Rate 83 Increase/Decrease Infused Cumulative Dose Not Applicable Total Intake (Rx) 3,914.383 Volume Adjustment/Waste 0 Insulin Aspart (Novolog) 1 - 5 unit SUBQ 0800,1200,1700,2100 [facility] PRN Reason: Protocol Last Admin: 04/13/17 17:34 Dose: Not Given Non-Admin Reason: Physiologically Contraindicated Insulin Glargine (Lantus Solostar) 10 unit SUBQ QPM [facility] Last Admin: 04/12/17 20:39 Dose: 10 unit Blood Glucose Document 04/12/17 20:39 RG (Rec: 04/12/17 20:39 RG [id number]) Blood Glucose Result (mg/dL) 176 Medication Double Check Document 04/12/17 20:39 RG (Rec: 04/12/17 20:39 RG [id number]) Verify Double Check Yes Subcutaneous Injection Site Document 04/12/17 20:39 RG (Rec: 04/12/17 20:39 RG [id number]) Site Subcutaneous Injection Site Left Outer Upper Arm Lorazepam (Ativan Inj) 1 mg IVP ONCE [facility] Stop: 04/11/17 12:00 Last Admin: 04/11/17 11:22 Dose: 1 mg CIWA-Ar Score Document 04/11/17 11:22 SD (Rec: 04/11/17 11:22 SD [id number]) Regimen Current Score Not Applicable Metolazone (Zaroxolyn) 2.5 mg PO ONCE [facility] Stop: 04/10/17 12:36 Last Admin: 04/10/17 15:38 Dose: 2.5 mg Polyethylene Glycol (Miralax) 17 gm PO DAILY [facility] Last Admin: 04/13/17 07:52 Dose: 17 gm Sodium Chloride (Normal Saline Flush 0.9%) 10 ml IVP PRN PRN PRN Reason: NEEDED PER PROVIDER ORDERS Last Admin: 04/13/17 17:45 Dose: 10 ml Sodium Chloride (Normal Saline Flush 0.9%) 10 ml IVP Q8HR [facility] Last Admin: 04/13/17 12:47 Dose: Spironolactone (Aldactone) 25 mg PO DAILY [facility] Last Admin: 04/13/17 07:53 Dose: 25 mg Trazodone HCl (Desyrel) 50 mg PO QPM PRN PRN Reason: Insomnia Last Admin: 04/13/17 00:09 Dose: 50 mg Warfarin Sodium (Coumadin) 2 mg PO SUTUTHSA@1400 [facility] Last Admin: 04/12/17 13:58 Dose: 2 mg Warfarin Sodium (Coumadin) 3 mg PO MOWEFR@1400 [facility] Last Admin: 04/13/17 13:28 Dose: 3 mg - PHYSICAL EXAM AT DISCHARGE General Appearance: positive: Moderate distress Eyes Bilateral: positive: Normal inspection, Other (mild icterus) ENT: positive: Pharynx nml, Other (Cerumen bilaterally, fluid behind tympanic membrane.) Neck: positive: Other (Profound JVD) Respiratory: positive: Chest non-tender, Rhonchi (bilateral low bases.) Cardiovascular: positive: Irregularly irregular, JVD present, Systolic murmur, Gallop/S4, Friction rub, Decreased pulse(s) Peripheral Pulses: positive: 0 (doppler only BLE) Abdomen: positive: Tenderness, Hepatomegaly, Splenomegaly, Abnml bowel sounds, Other (profoundly distended, pitting over torso.) Rectal: positive: Tenderness (tenderness noted on coccyx, not open) Back: positive: CVA tenderness (R), CVA tenderness (L) Skin: positive: Dry, Pallor Extremities: positive: Pedal edema (severe pitting, more than previous exam.), Calf tenderness, Joint swelling Neurologic/Psychiatric: positive: Oriented x3, Depressed mood/affect (flat affect) Reflexes: Ankle (R): 1+, Ankle (L): 1+ Babinski Reflex: Right: Absent, Left: Absent - LABS Result Diagrams: 04/12/17 05:28 04/13/17 05:02 - DIAGNOSTIC IMAGING Diagnostic Imaging Results: Prelim report reviewed, Final report reviewed, See rad report - TIME SPENT Time Spent in Discharge (Minutes): 120
[2017-04-13 18:30] VITALS: BP 130/87
[2017-04-13] MEDS ORDERED: SPIRONOLACTONE 25 MG TABLET PO SCH (21:00)
--- NOTE | 2017-04-14 21:04 | Ultrasound Preliminary Report ---
Exam: US ABDOMEN COMPLETE IMPRESSION: 1. No mass visualized by ultrasound. Visualization of solid organs moderately limited by body habitus . Pancreas not seen. Left kidney and spleen not seen. [facility] SITE ID: [id number]
== END 2017-04-13 18:40 | disposition short-term general hospital (02) | DRG 292 ==
LOC: EDUNIT# → ED 09:59 → OBS 12:44 → OBSVTOIN 04-11 07:01 → MS2 04-11 08:55
PROVIDERS: ADMIT Nurse Practitioner; ATTEND Nurse Practitioner
DX: R06.02 Shortness of breath (principal); I11.0 Hypertensive heart disease with heart failure; J81.1 Chronic pulmonary edema; R18.8 Other ascites; R17 Unspecified jaundice; Z68.43 Body mass index [BMI] 50.0-59.9, adult; E11.8 Type 2 diabetes mellitus with unspecified complications; E87.1 Hypo-osmolality and hyponatremia; L97.528 Non-pressure chronic ulcer of other part of left foot with other specified severity; I50.21 Acute systolic (congestive) heart failure; I27.29 Other secondary pulmonary hypertension; E11.40 Type 2 diabetes mellitus with diabetic neuropathy, unspecified; I10 Essential (primary) hypertension; E11.649 Type 2 diabetes mellitus with hypoglycemia without coma; E11.621 Type 2 diabetes mellitus with foot ulcer; E66.01 Morbid (severe) obesity due to excess calories; I48.2 Chronic atrial fibrillation; E78.5 Hyperlipidemia, unspecified; Z98.84 Bariatric surgery status; M20.5X2 Other deformities of toe(s) (acquired), left foot; L89.151 Pressure ulcer of sacral region, stage 1; F32.9 Major depressive disorder, single episode, unspecified; R91.8 Other nonspecific abnormal finding of lung field; R97.1 Elevated cancer antigen 125 [CA 125]; R01.1 Cardiac murmur, unspecified; Z79.01 Long term (current) use of anticoagulants; Z79.4 Long term (current) use of insulin; Z79.899 Other long term (current) drug therapy
CPT/HCPCS: 36415; 71010; 71250; 74176; 76700; 80048; 80053; 82140; 82150; 82378; 82977; 83036; 83690; 83735; 83880; 84100; 84484; 85025; 85610; 86304; 93005; 93306; 93308; 96372; 96374; 96375; 99284; 99285

== ENCOUNTER 2017-04-13 18:41 | Outpatient (CLI) | payer MEDICARE, BC | END 2017-04-13 18:42 | disposition short-term general hospital (02) | LOC: EMS 18:41 | PROVIDERS: ATTEND Surgery | DX: R09.89 Other specified symptoms and signs involving the circulatory and respiratory systems (principal) | CPT/HCPCS: A0170; A0425; A0426 ==

== ENCOUNTER 2017-05-04 13:31 | Outpatient (CLI) | payer MEDICARE, BC | END 2017-05-04 13:32 | disposition home or self-care (01) | LOC: EMS 13:31 | PROVIDERS: ATTEND Surgery | DX: Z51.5 Encounter for palliative care (principal) | CPT/HCPCS: A0425; A0428 ==